=== PATIENT | female | born 1980 | race Hispanic/Latino ===

== ENCOUNTER 2019-03-07 05:31 | Observation (INO) | payer BC ==
[2019-03-05 17:05] LABS: BASOPHILS # (AUTO) 0.1 (0.0-0.1); BASOPHILS % 0.7 % (0.0-1.0); EOSINOPHILS # (AUTO) 0.7 (0.0-0.4); EOSINOPHILS % 8.4 % (0.0-6.0); HEMATOCRIT 37.2 % (34.2-44.1); LYMPHOCYTES # (AUTO) 1.6 (1.0-3.2); LYMPHOCYTES % 20.2 % (18.0-39.1); MEAN CORPUSCULAR HEMOGLOBIN 27.6 pg (28-32); MEAN CORPUSCULAR HGB CONC 32.3 g/dL (31-35); MEAN CORPUSCULAR VOLUME 85.5 fL (81-99); MONOCYTES # (AUTO) 0.5 (0.2-0.8); MONOCYTES % 6.2 % (4.4-11.3); NEUTROPHILS # (AUTO) 5.2 (2.1-6.9); NEUTROPHILS % 64.3 % (38.7-80.0); PLATELET COUNT 223 x10e3/uL (140-360); RED BLOOD COUNT 4.35 x10e6/uL (3.6-5.1); RED CELL DISTRIBUTION WIDTH 15.6 % (11.7-14.4)
[2019-03-05 17:07] LABS: BILIRUBIN,URINE NEGATIVE (NEGATIVE); COLOR,URINE YELLOW (YELLOW); NITRITE,URINE NEGATIVE (NEGATIVE); PROTEIN,URINE DIPSTICK NEGATIVE (NEGATIVE); URINE UROBILINOGEN 0.2 mg/dL (0.2 - 1)
[2019-03-05 17:15] LABS: CLARITY,URINE CLOUDY (CLEAR); KETONES,URINE NEGATIVE (NEGATIVE); LEUKOCYTE ESTERASE ,URINE NEGATIVE (NEGATIVE)
[2019-03-05 17:20] LABS: ALBUMIN 3.8 g/dL (3.5-5.0); BILIRUBIN,DIRECT 0.1 mg/dL (0.0-0.5)
[2019-03-05 17:33] LABS: HIV 1&2 AB SCREEN NON-REACTIVE (NONREACTIVE)
--- NOTE | 2019-03-05 17:42 | Diagnostic Imaging Report ---
EXAM: CHEST 2 VIEWS DATE: 03/05/2019 4:12 PM INDICATION: ^PRE-OP ORDERS COMPARISON: None FINDINGS: Lines and tubes: None Heart size normal. No focal pulmonary opacity, pleural effusion or pneumothorax. Upper abdomen unremarkable. No acute bony abnormality. IMPRESSION: No evidence for acute disease. Signed by: Dr. Dwight Phipps M.D. on 03/05/2019 5:38 PM
[~2019-03-07] VITALS: Ht 160 cm; Wt 109.8 kg
[~2019-03-07 05:31] MED LIST: HEMOCYTE-F TAB1 EACH PO
--- OUTSIDE RECORDS SUMMARY | 2019-03-07 05:38 | XMS REPORT | Summary of Care ---
Author Author [facility] Organization [facility] Address Unknown Phone Unavailable Encounter MIREYA Eng(ALEXIA) [id number] Date(s): 03/08/18 - 03/08/18 [facility] [address] [facility] [address] [place], [place] [id number]- Discharge Disposition: Home or Self Care Attending Physician: Jane Prescott MD Vital Signs Most recent to 1 oldest [Reference Range]: Height 154.94 cm (03/08/18 4:02 PM) Temperature Oral 97.6 DegF [96.4-99.1 DegF] (03/08/18 4:02 PM) Blood Pressure 118/81 mmHg [90-140/60-90 mmHg] (03/08/18 4:02 PM) Respiratory Rate 16 BRMIN [14-20 BRMIN] (03/08/18 4:02 PM) Peripheral Pulse 100 bpm Rate [60-100 bpm] (03/08/18 4:02 PM) Weight 105.455 kg (03/08/18 4:02 PM) Body Mass Index 43.93 m2 (03/08/18 4:02 PM) Problem List Condition Effective Dates Status Health Status Informant Daytime Active somnolence(Confirmed ) Generalized Active abdominal pain(Confirmed) Iron deficiency Active anemia(Confirmed) Abdominal pain, Resolved chronic, left upper quadrant(Confirmed) Leukocytosis(Confirm Active ed) Cervicalgia of Active bottctkm-lpragly-lfz al region(Confirmed) Obesity(Confirmed) Active Encounter for Active preventive health examination(Confirme d) Abdominal pain, Resolved chronic, right upper quadrant(Confirmed) Allergies, Adverse Reactions, Alerts Substance Reaction Severity Status Seasonale Active Medications Medrol Dosepak 4 mg oral tablet See Instructions, PO, Take by mouth as directed on label., # 1 Pack, 0 Refill(s) Start Date: 03/08/18 Stop Date: 03/14/18 Status: Ordered Pulmicort Flexhaler 90 mcg/inh inhalation powder 1 puff, INHALATION, BID, # 1 ea, 0 Refill(s) Start Date: 03/08/18 Stop Date: 04/07/18 Status: Ordered Results No data available for this section Immunizations No data available for this section Procedures Procedure Date Related Diagnosis Body Site Status Gallbladder operation 2009 Completed section 01/22/09 Completed Social History Social History Type Response Employment/School Status: Employed. Alcohol Current, Type Beer, Wine, Liquor. Frequency: 1-2 times per week. Smoking Status Never smoker; Exposure to Tobacco Smoke None; Cigarette Smoking Last 365 Days No; Reg Smoking Cessation Counseling No1 entered on: 03/08/18 1Cessation N/A Assessment and Plan No data available for this section
--- OUTSIDE RECORDS SUMMARY | 2019-03-07 05:38 | XMS REPORT | Summary of Care ---
Author Author [facility] Organization [facility] Address Unknown Phone Unavailable Encounter MIREYA Eng(ALEXIA) [id number] Date(s): 11/01/16 - 11/01/16 [facility] [address] [place] [address]- [facility] [phone] Discharge Disposition: Home or Self Care Attending Physician: Houston Root MD Referring Physician: Houston Root MD Vital Signs Most recent to 1 oldest [Reference Range]: Height 160.02 cm (11/01/16 1:13 PM) Blood Pressure 124/87 mmHg [90-140/60-90 mmHg] (11/01/16 1:13 PM) Respiratory Rate 16 BRMIN [14-20 BRMIN] (11/01/16 1:13 PM) Peripheral Pulse 74 bpm Rate [60-100 bpm] (11/01/16 1:13 PM) Weight 103.182 kg (11/01/16 1:13 PM) Body Mass Index 40.3 m2 (11/01/16 1:13 PM) Problem List Condition Effective Dates Status Health Status Informant Obesity(Confirmed) Active Encounter for Active preventive health examination(Confirme d) Allergies, Adverse Reactions, Alerts Substance Reaction Severity Status Seasonale Active Medications ranitidine 0 Refill(s) Start Date: 11/01/16 Status: Ordered Results No data available for this section Immunizations No data available for this section Procedures Procedure Date Related Diagnosis Body Site section Gallbladder operation Social History Social History Type Response Alcohol Current, Type Beer, Wine, Liquor. Frequency: 1-2 times per week. Smoking Status Never smoker; Exposure to Tobacco Smoke None; Cigarette Smoking Last 365 Days No; Reg Smoking Cessation Counseling No Assessment and Plan No data available for this section
--- OUTSIDE RECORDS SUMMARY | 2019-03-07 05:38 | XMS REPORT | Summary of Care ---
Author Author [facility] Organization [facility] Address Unknown Phone Unavailable Encounter HQ Albertina(ALEXIA) [id number] Date(s): 12/16/16 - 01/14/17 [facility] [address] [facility] [address] [place] [address] [place] [phone] Discharge Disposition: Home or Self Care Attending Physician: Haley Powers MD Referring Physician: Haley Powers MD Vital Signs 1 2 3 Most recent to oldest [Reference Range]: 154.94 cm (01/07/17 11:34 AM) 155.5 cm (12/22/16 1:05 PM) 157.4 cm (12/16/16 10:42 AM) Height 97.8 DegF (01/07/17 11:34 AM) 97.6 DegF (12/22/16 1:05 PM) 97.9 DegF (12/16/16 10:42 AM) Temperature Oral [96.4-99.1 DegF] 118/84 mmHg (01/07/17 11:34 AM) 119/83 mmHg (12/22/16 1:05 PM) 114/78 mmHg (12/16/16 10:42 AM) Blood Pressure [90-140/60-90 mmHg] 18 BRMIN (01/07/17 11:34 AM) 18 BRMIN (12/22/16 1:05 PM) 18 BRMIN (12/16/16 10:42 AM) Respiratory Rate [14-20 BRMIN] 67 bpm (01/07/17 11:34 AM) 81 bpm (12/22/16 1:05 PM) 91 bpm (12/16/16 10:42 AM) Peripheral Pulse Rate [60-100 bpm] 99.545 kg (01/07/17 11:34 AM) 100.182 kg (12/22/16 1:05 PM) 100.5 kg (12/16/16 10:42 AM) Weight 41.47 m2 (01/07/17 11:34 AM) 41.43 m2 (12/22/16 1:05 PM) 40.57 m2 (12/16/16 10:42 AM) Body Mass Index Problem List Condition Effective Dates Status Health Status Informant Generalized Active abdominal pain(Confirmed) Abdominal pain, Active chronic, left upper quadrant(Confirmed) Leukocytosis(Confirm Active ed) Obesity(Confirmed) Active Encounter for Active preventive health examination(Confirme d) Abdominal pain, Active chronic, right upper quadrant(Confirmed) Allergies, Adverse Reactions, Alerts Substance Reaction Severity Status Seasonale Active Medications ferrous sulfate 325 mg oral enteric coated tablet 325 mg=1 tab, PO, BID, # 60 tab, 3 Refill(s), Pharmacy: [id number] Start Date: 12/30/16 Stop Date: 04/29/17 Status: Ordered Flonase 0.05 mg/inh nasal spray 1 spray, NASAL, BID, # 16 gm, 0 Refill(s), Pharmacy: [id number] Start Date: 12/30/16 Status: Ordered Results No data available for this section Immunizations No data available for this section Procedures Procedure Date Related Diagnosis Body Site Gallbladder operation 2009 section 01/22/09 Social History Social History Type Response Employment/School Status: Employed. Alcohol Current, Type Beer, Wine, Liquor. Frequency: 1-2 times per week. Smoking Status Never smoker; Exposure to Tobacco Smoke None; Cigarette Smoking Last 365 Days No; Reg Smoking Cessation Counseling No1 1Cessation N/A Assessment and Plan Extracted from: Title: Consult Note Author: Rich Blank MD Date: 12/22/16 Assessment/Plan Right lower quadrant abdominal swelling, mass and lump Imaging reviewed and although there is an ill-defined area in the RLQ, no discernable mass is seen. She has several imaging studies that are pending (PET) and a colonoscopy. Will re-eval after these are complete as of now there is no diagnosis. She is in agreement This will be conferred to Dr. Powers
--- OUTSIDE RECORDS SUMMARY | 2019-03-07 05:38 | XMS REPORT | Summary of Care ---
Author Author [facility] Internal Medicine [facility] Organization [facility] Internal Medicine [facility] Address Unknown Phone Unavailable Encounter MIREYA Eng(ALEXIA) [id number] Date(s): 11/10/17 - 11/10/17 [facility] Internal Medicine [facility] [address] [facility] [address] [place], [place] [phone]- Discharge Disposition: Home or Self Care Attending Physician: Ryan Roque MD Vital Signs Most recent to 1 oldest [Reference Range]: Height 154.94 cm (11/10/17 3:06 PM) Temperature Oral 98.2 DegF [96.4-99.1 DegF] (11/10/17 3:06 PM) Blood Pressure 115/82 mmHg [90-140/60-90 mmHg] (11/10/17 3:06 PM) Respiratory Rate 16 BRMIN [14-20 BRMIN] (11/10/17 3:06 PM) Peripheral Pulse 72 bpm Rate [60-100 bpm] (11/10/17 3:06 PM) Weight 105 kg (11/10/17 3:06 PM) Body Mass Index 43.74 m2 (11/10/17 3:06 PM) Problem List Condition Effective Dates Status Health Status Informant Daytime Active somnolence(Confirmed ) Generalized Active abdominal pain(Confirmed) Iron deficiency Active anemia(Confirmed) Abdominal pain, Resolved chronic, left upper quadrant(Confirmed) Leukocytosis(Confirm Active ed) Cervicalgia of Active dwbkulut-fsgyxux-hgg al region(Confirmed) Obesity(Confirmed) Active Encounter for Active preventive health examination(Confirme d) Abdominal pain, Resolved chronic, right upper quadrant(Confirmed) Allergies, Adverse Reactions, Alerts Substance Reaction Severity Status Seasonale Active Medications ferrous sulfate 160 mg oral tablet, extended release 160 mg=1 tab, PO, Daily, # 90 tab, 1 Refill(s), Pharmacy: [id number] Start Date: 11/10/17 Status: Ordered Results No data available for [...] Reg Smoking Cessation Counseling No1 entered on: 11/10/17 1Cessation N/A Assessment and Plan No data available for this section
--- OUTSIDE RECORDS SUMMARY | 2019-03-07 05:38 | XMS REPORT | Summary of Care ---
Author Author [facility] Organization [facility] Address Unknown Phone Unavailable Encounter MIREYA Eng(ALEXIA) [id number] Date(s): 11/07/16 - 11/08/16 [facility] [address] [place] [address] Discharge Diagnosis: Epigastric pain Discharge Diagnosis: UTI (urinary tract infection) Discharge Disposition: Home or Self Care Attending Physician: Sharon Ballard MD Vital Signs 1 2 3 Most recent to oldest [Reference Range]: 160.02 cm (11/07/16 11:46 PM) Height 97.9 DegF (11/08/16 5:15 AM) 98 DegF (11/08/16 2:13 AM) 98.3 DegF (11/07/16 11:46 PM) Temperature Oral [96.4-99.1 DegF] 103/63 mmHg (11/08/16 5:15 AM) 119/71 mmHg (11/08/16 4:15 AM) 119/71 mmHg (11/08/16 3:15 AM) Blood Pressure [90-140/60-90 mmHg] 18 BRMIN (11/08/16 5:15 AM) 18 BRMIN (11/08/16 4:15 AM) 19 BRMIN (11/08/16 3:15 AM) Respiratory Rate [14-20 BRMIN] 79 bpm (11/08/16 5:15 AM) 70 bpm (11/08/16 4:15 AM) 68 bpm (11/08/16 3:15 AM) Peripheral Pulse Rate [60-100 bpm] 103.182 kg (11/07/16 11:46 PM) Weight 40.3 m2 (11/07/16 11:46 PM) Body Mass Index Problem List Condition Effective Dates Status Health Status Informant Obesity(Confirmed) Active Encounter for Active preventive health examination(Confirme d) Allergies, Adverse Reactions, Alerts Substance Reaction Severity Status Seasonale Active Medications GI cocktail 30 mL, Route: PO, Dosing Weight 103.182, kg, ONCE, STAT, Start date: 11/08/16 3: 10:00 CDT, Stop date: 11/08/16 3:10:00 CDT Start Date: 11/08/16 Stop Date: 11/08/16 Status: Completed Macrobid 100 mg oral capsule 100 mg=1 cap, PO, BID, X 3 day, # 6 cap, 0 Refill(s) Start Date: 11/08/16 Stop Date: 11/11/16 Status: Ordered morphine Sulfate 4 mg, Route: IVP, ONCE, Dosing Weight 103.182, kg, Priority: STAT, Start date: 0 11/08/16 3:10:00 CDT, Stop date: 11/08/16 3:10:00 CDT Start Date: 11/08/16 Stop Date: 11/08/16 Status: Completed ondansetron 4 mg, Route: IVP, ONCE, Dosing Weight 103.182, kg, Priority: STAT, Start date: 0 11/08/16 3:10:00 CDT, Stop date: 11/08/16 3:10:00 CDT Start Date: 11/08/16 Stop Date: 11/08/16 Status: Completed pantoprazole 40 mg, Route: IVP, ONCE, Dosing Weight 103.182, kg, For IV push reconstitute wit h 10 ml 0.9% sodium chloride and push over at least 3 minutes, Priority: STAT, S tart date: 11/08/16 3:10:00 CDT, Stop date: 11/08/16 3:10:00 CDT Start Date: 11/08/16 Stop Date: 11/08/16 Status: Completed Saline Flush 0.9% 10 mL, Route: IVP, Drug Form: INJ, Dosing Weight 103.182, kg, PRN, PRN Line Flus h, Start date: 11/08/16 3:10:00 CDT, Duration: 30 day, Stop date: 12/08/16 3:09: 00 CDT Notes: (Same as: BD Posiflush) Start Date: 11/08/16 Stop Date: 11/08/16 Status: Discontinued Sodium Chloride 0.9% (Bolus) IV 1,000 mL, 2,000 ml/hr, Infuse Over: 30 minutes, Route: IV, ONCE, Priority: STAT, Dosing Weight 103.182 kg, Start date: 11/08/16 3:10:00 CDT, Duration: 1 doses or times, Stop date: 11/08/16 3:10:00 CDT Start Date: 11/08/16 Stop Date: 11/08/16 Status: Completed tramadol 50 mg oral tablet 50 mg, Route: PO, Drug form: TAB, ONCE, Dosing Weight 103.182, kg, Priority: STA T, Start date: 11/08/16 5:38:00 CDT, Stop date: 11/08/16 5:38:00 CDT Start Date: 11/08/16 Stop Date: 11/08/16 Status: Completed Results ELECTROLYTES Most recent to 1 oldest [Reference Range]: Sodium Lvl [135-145 137 mEq/L mEq/L] (11/08/16 3:22 AM) Potassium Lvl 3.9 mEq/L [3.5-5.1 mEq/L] (11/08/16 3:22 AM) Chloride Lvl [95-109 102 mEq/L mEq/L] (11/08/16 3:22 AM) CO2 [24-32 mEq/L] 26 mEq/L (11/08/16 3:22 AM) AGAP [10.0-20.0 12.9 mEq/L mEq/L] (11/08/16 3:22 AM) CHEM PANEL Most recent to 1 oldest [Reference Range]: Creatinine Lvl 0.82 mg/dL [0.50-1.40 mg/dL] (11/08/16 3:22 AM) eGFR 94 mL/min/1.73m2 1 *NA* (11/08/16 3:22 AM) BUN [7-22 mg/dL] 10 mg/dL (11/08/16 3:22 AM) Glucose Lvl [70-99 152 mg/dL mg/dL] *HI* (11/08/16 3:22 AM) Total Protein 7.3 g/dL [6.4-8.4 g/dL] (11/08/16 3:22 AM) Albumin Lvl [3.5-5.0 3.5 g/dL g/dL] (11/08/16 3:22 AM) Globulin [2.7-4.2 3.8 g/dL g/dL] (11/08/16 3:22 AM) A/G Ratio [0.7-1.6] 0.9 (11/08/16 3:22 AM) Calcium Lvl 8.8 mg/dL [8.5-10.5 mg/dL] (11/08/16 3:22 AM) ALT [0-65 unit/L] 40 unit/L (11/08/16 3:22 AM) AST [0-37 unit/L] 17 unit/L (11/08/16 3:22 AM) Alk Phos [39-136 107 unit/L unit/L] (11/08/16 3:22 AM) Bili Total [0.2-1.3 0.3 mg/dL mg/dL] (11/08/16 3:22 AM) Bili Direct [0.0-0.3 0.1 mg/dL mg/dL] (11/08/16 3:22 AM) Bili Indirect 0.2 mg/dL [0.0-1.0 mg/dL] (11/08/16 3:22 AM) Lipase Lvl [73-393 89 unit/L unit/L] (11/08/16 3:22 AM) 1Result Comment: The eGFR is calculated using the CKD-EPI formula. In most young, healthy individuals the eGFR will be >90 mL/min/1.73m2. The eGFR declines with age. An eGFR of 60-89 may be normal in some populations, particularly the elderly, for whom the CKD-EPI formula has not been extensively validated. Use of the eGFR is not recommended in the following populations: Individuals with unstable creatinine concentrations, including patients and those with serious co-morbid conditions. Patients with extremes in muscle mass or diet. The data above are obtained from the National Kidney Disease Education Program ( NKDEP) which additionally recommends that when the eGFR is used in patients with extremes of body mass index for purposes of drug dosing, the eGFR should be mul tiplied by the estimated BMI. URINE AND STOOL Most recent to 1 oldest [Reference Range]: UA Turbidity [Clear] Slight *ABN* (11/08/16 4:31 AM) UA Color Ltyellow *NA* (11/08/16 4:31 AM) UA pH [5.0-8.0] 5.0 (11/08/16 4:31 AM) UA Spec Grav 1.012 [<=1.030] (11/08/16 4:31 AM) UA Glucose [Negative Negative mg/dL mg/dL] *NA* (11/08/16 4:31 AM) UA Blood [Negative] Negative (11/08/16 4:31 AM) UA Ketones [Negative Negative mg/dL mg/dL] *NA* (11/08/16 4:31 AM) UA Protein [Negative Negative mg/dL mg/dL] (11/08/16 4:31 AM) UA Urobilinogen <=1.0 mg/dL [0.1-1.0 mg/dL] *NA* (11/08/16 4:31 AM) UA Bili [Negative] Negative *NA* (11/08/16 4:31 AM) UA Leuk Est Large [Negative] *ABN* (11/08/16 4:31 AM) UA Nitrite Negative [Negative] (11/08/16 4:31 AM) UA WBC [0-5 /HPF] 22 /HPF *HI* (11/08/16 4:31 AM) UA RBC [0-2 /HPF] 5 /HPF *HI* (11/08/16 4:31 AM) UA Bacteria [None Moderate /HPF Seen /HPF] *ABN* (11/08/16 4:31 AM) UA Sq Epi [Few /LPF] Many /LPF *ABN* (11/08/16 4:31 AM) UA Mucus [None Seen Few /LPF /LPF] *NA* (11/08/16 4:31 AM) HEMATOLOGY Most recent to 1 oldest [Reference Range]: WBC [3.7-10.4 K/CMM] 17.8 K/CMM *HI* (11/08/16 3:22 AM) RBC [4.20-5.40 4.47 M/CMM M/CMM] (11/08/16 3:22 AM) Hgb [12.0-16.0 g/dL] 11.3 g/dL *LOW* (11/08/16 3:22 AM) Hct [36.0-48.0 %] 34.7 % *LOW* (11/08/16 3:22 AM) MCV [80.0-98.0 fL] 77.7 fL *LOW* (11/08/16 3:22 AM) MCH [27.0-31.0 pg] 25.2 pg *LOW* (11/08/16 3:22 AM) MCHC [32.0-36.0 32.5 g/dL g/dL] (11/08/16 3:22 AM) RDW [11.5-14.5 %] 14.8 % *HI* (11/08/16 3:22 AM) Platelet [133-450 254 K/CMM K/CMM] (11/08/16 3:22 AM) MPV [7.4-10.4 fL] 8.5 fL (11/08/16 3:22 AM) Segs [45.0-75.0 %] 90.8 % *HI* (11/08/16 3:22 AM) Lymphocytes 5.3 % [20.0-40.0 %] *LOW* (11/08/16 3:22 AM) Monocytes [2.0-12.0 3.7 % %] (11/08/16 3:22 AM) Eosinophils [0.0-4.0 0.1 % %] (11/08/16 3:22 AM) Basophils [0.0-1.0 0.1 % %] (11/08/16 3:22 AM) Segs-Bands # 16.2 K/CMM [1.5-8.1 K/CMM] *HI* (11/08/16 3:22 AM) Lymphocytes # 0.9 K/CMM [1.0-5.5 K/CMM] *LOW* (11/08/16 3:22 AM) Monocytes # [0.0-0.8 0.7 K/CMM K/CMM] (11/08/16 3:22 AM) Microcyte [None 1+ Seen] *ABN* (11/08/16 3:22 AM) Immunizations No data available for this section [...]
--- OUTSIDE RECORDS SUMMARY | 2019-03-07 05:38 | XMS REPORT | Summary of Care ---
Author Author [facility] Internal Medicine [facility] Organization [facility] Internal Medicine [facility] Address Unknown Phone Unavailable Encounter MIREYA Eng(ALEXIA) [id number] Date(s): 02/02/18 - 02/02/18 [facility] Internal Medicine [facility] [address] [facility] [address] [place], [place] [phone]- [phone] Discharge Disposition: Home or Self Care Attending Physician: Ryan Roque MD Vital Signs Most recent to 1 oldest [Reference Range]: Height 154.94 cm (02/02/18 11:40 AM) Temperature Oral 98.2 DegF [96.4-99.1 DegF] (02/02/18 11:40 AM) Blood Pressure 117/81 mmHg [90-140/60-90 mmHg] (02/02/18 11:40 AM) Respiratory Rate 16 BRMIN [14-20 BRMIN] (02/02/18 11:40 AM) Peripheral Pulse 91 bpm Rate [60-100 bpm] (02/02/18 11:40 AM) Weight 105.455 kg (02/02/18 11:40 AM) Body Mass Index 43.93 m2 (02/02/18 11:40 AM) Problem List Condition Effective Dates Status Health Status Informant Daytime Active somnolence(Confirmed ) Generalized Active abdominal pain(Confirmed) Iron deficiency Active anemia(Confirmed) Abdominal pain, Resolved chronic, left upper quadrant(Confirmed) Leukocytosis(Confirm Active ed) Cervicalgia of Active zcwqiqdi-brzqiyn-hjj al region(Confirmed) Obesity(Confirmed) Active Encounter for Active preventive health examination(Confirme d) Abdominal pain, Resolved chronic, right upper quadrant(Confirmed) Allergies, Adverse Reactions, Alerts Substance Reaction Severity Status Seasonale Active Medications azithromycin 250 mg oral tablet See Instructions, Take 2 tablets by mouth the first day then 1 tablet by mouth d aily on days 2-5., X 5 day, # 6 tab, 0 Refill(s) Start Date: 02/02/18 Stop Date: 02/07/18 Status: Ordered predniSONE 20 mg oral tablet 40 mg=2 tab, PO, Daily, X 5 day, # 10 tab, 0 Refill(s) Start Date: 02/02/18 Stop Date: 02/07/18 Status: Ordered Results No data available for [...] Reg Smoking Cessation Counseling No1 entered on: 02/02/18 1Cessation N/A Assessment and Plan No data available for this section
--- OUTSIDE RECORDS SUMMARY | 2019-03-07 05:38 | XMS REPORT | Summary of Care ---
Author Author [facility] Organization [facility] [place] Address Unknown Phone Unavailable Encounter HQ Albertina(FIN) [id number] Date(s): 12/28/16 - 12/28/16 [facility] [address] [place] [phone] Discharge Disposition: Home or Self Care Attending Physician: Haley Powers MD Vital Signs No data available for this section Problem List Condition Effective Dates Status Health Status Informant Generalized Active abdominal pain(Confirmed) Abdominal pain, Active chronic, left upper quadrant(Confirmed) Leukocytosis(Confirm Active ed) Obesity(Confirmed) Active Encounter for Active preventive health examination(Confirme d) Abdominal pain, Active chronic, right upper quadrant(Confirmed) Allergies, Adverse Reactions, Alerts Substance Reaction Severity Status Seasonale Active Medications No data available for this section Results No data available for this section [...] Counseling No1 1Cessation N/A Assessment and Plan No data available for this section
--- OUTSIDE RECORDS SUMMARY | 2019-03-07 05:38 | XMS REPORT | CCD ---
Author Author Auto Generated Organization [facility] Address Unknown Phone Unavailable Care Team Providers Care Teacher Vocal Name Role Phone Rocky Keane CP Allergies, Adverse Reactions, Alerts Substance Reaction Status morphine Active Medications Medication Instructions Start Date End Date Status Cipro 500 mg oral 500 mg, 1 tab, PO, Q12H, 6 tab, 12/09/2011 12/12/2011 Ordered tablet Substitution Allowed, TAB Phenergan 25 mg oral 25 mg, 1 tab, PO, Q6H, PRN, 15 tab, 12/09/2011 Ordered tablet Nausea, Substitution Allowed GI cocktail 30 ml, Route: PO, Drug Form: SUSP, 12/09/2011 12/09/2011 Completed ONCE, Formulation #1: (Maalox 30ml - Viscous Lidocaine 10ml - Elixir 10ml), STAT, Start date: 12/09/11 11:09:00, Stop date: 12/09/11 11:09:00 pantoprazole 40 mg, Route: IVP, ONCE, For IV 12/09/2011 12/09/2011 Completed push reconstitute with 10 ml 0.9% sodium chloride and push over at least 3 minutes, Priority: STAT, Start date: 12/09/11 11:09:00, Stop date: 12/09/11 11:09:00 ondansetron 4 mg, Route: IVP, ONCE, Priority: 12/09/2011 12/09/2011 Completed STAT, Start date: 12/09/11 11:09:00, Stop date: 12/09/11 11:09:00 Saline Flush 0.9% 5 ml, Route: IVP, Drug Form: INJ, 12/09/2011 12/09/2011 Discontinued PRN, PRN Line Flush, Start date: 12/09/11 11:09:00, Duration: 24 hr, Stop date: 12/10/11 11:08:00 Vital Signs Most recent to oldest [Reference Range]: 1 Height 160.02 cm (12/09/2011 08:26:00) Weight 90.000 kg (12/09/2011 08:26:00) Results URINALYSIS Most recent to oldest [Reference Range]: 1 UA Turbidity [Clear] Marked *ABN* (12/09/2011 09:15:00) UA Color Ltyellow *NA* (12/09/2011 09:15:00) UA pH [5.0-8.0] 6.0 (12/09/2011 09:15:00) UA Spec Grav [<=1.030] 1.015 (12/09/2011 09:15:00) UA Glucose [Negative mg/dL] Negative mg/dL *NA* (12/09/2011 09:15:00) UA Blood [Negative] Negative (12/09/2011 09:15:00) UA Ketones [Negative mg/dL] Negative mg/dL *NA* (12/09/2011 09:15:00) UA Protein [Negative mg/dL] Negative mg/dL (12/09/2011 09:15:00) UA Urobilinogen [0.1-1.0 mg/dL] <=1.0 mg/dL *NA* (12/09/2011 09:15:00) UA Bili [Negative] Negative *NA* (12/09/2011 09:15:00) UA Leuk Est [Negative] Moderate *ABN* (12/09/2011 09:15:00) UA Nitrite [Negative] Negative (12/09/2011 09:15:00) UA WBC [0-5 /HPF] 8 /HPF *HI* (12/09/2011 09:15:00) UA RBC [0-2 /HPF] <1 /HPF (12/09/2011 09:15:00) UA Bacteria [None Seen /HPF] Few /HPF *NA* (12/09/2011 09:15:00) UA Sq Epi [Few /LPF] Moderate /LPF *ABN* (12/09/2011 09:15:00) CHEMISTRY Most recent to oldest [Reference Range]: 1 Sodium Lvl [135-145 mEq/L] 140 mEq/L (12/09/2011 08:40:00) Potassium Lvl [3.5-5.1 mEq/L] 4.0 mEq/L (12/09/2011 08:40:00) Chloride Lvl [95-109 mEq/L] 106 mEq/L (12/09/2011 08:40:00) CO2 [24-32 mEq/L] 26 mEq/L (12/09/2011 08:40:00) AGAP [10.0-20.0 mEq/L] 12.0 mEq/L (12/09/2011 08:40:00) Creatinine Lvl [0.5-1.4 mg/dL] 0.9 mg/dL (12/09/2011 08:40:00) BUN [7-22 mg/dL] 10 mg/dL (12/09/2011 08:40:00) B/C Ratio [6-25] 11 (12/09/2011 08:40:00) Glucose Lvl [70-99 mg/dL] 101 mg/dL 1 *HI* (12/09/2011 08:40:00) Total Protein [6.4-8.4 g/dL] 7.7 g/dL (12/09/2011 08:40:00) Albumin Lvl [3.5-5.0 g/dL] 3.9 g/dL (12/09/2011 08:40:00) Globulin [2.0-4.0 g/dL] 3.8 g/dL (12/09/2011 08:40:00) A/G Ratio [0.7-1.6] 1.0 (12/09/2011 08:40:00) Calcium Lvl [8.5-10.5 mg/dL] 8.8 mg/dL (12/09/2011 08:40:00) ALT [0-65 U/L] 27 U/L (12/09/2011 08:40:00) AST [0-37 U/L] 8 U/L (12/09/2011 08:40:00) Alk Phos [39-136 U/L] 107 U/L (12/09/2011 08:40:00) Bili Total [0.2-1.3 mg/dL] 0.3 mg/dL (12/09/2011 08:40:00) Amylase Lvl [25-115 U/L] 45 U/L (12/09/2011 08:40:00) Lipase Lvl [73-393 U/L] 110 U/L (12/09/2011 08:40:00) U Preg [Negative] Negative (12/09/2011 09:15:00) 1Interpretive Data: Adult reference range values reflect the clinical guidelinesof the [place] [employer]. HEMATOLOGY Most recent to oldest [Reference Range]: 1 WBC [3.7-10.4 K/CMM] 10.8 K/CMM *HI* (12/09/2011 08:40:00) RBC [4.20-5.40 M/CMM] 4.70 M/CMM (12/09/2011 08:40:00) Hgb [12.0-16.0 g/dL] 12.4 g/dL (12/09/2011 08:40:00) Hct [36.0-48.0 %] 38.3 % (12/09/2011 08:40:00) MCV [81.0-99.0 fL] 81.6 fL (12/09/2011 08:40:00) MCH [27.0-31.0 pg] 26.4 pg *LOW* (12/09/2011 08:40:00) MCHC [32.0-36.0 g/dL] 32.3 g/dL (12/09/2011 08:40:00) RDW [11.5-14.5 %] 14.2 % (12/09/2011 08:40:00) Platelet [133-450 K/CMM] 201 K/CMM (12/09/2011 08:40:00) MPV [7.4-10.4 fL] 10.0 fL (12/09/2011 08:40:00) Segs [45.0-75.0 %] 84.5 % *HI* (12/09/2011 08:40:00) Lymphocytes [20.0-40.0 %] 11.1 % *LOW* (12/09/2011 08:40:00) Monocytes [2.0-12.0 %] 3.0 % (12/09/2011 08:40:00) Eosinophils [0.0-4.0 %] 1.2 % (12/09/2011 08:40:00) Basophils [0.0-1.0 %] 0.2 % (12/09/2011 08:40:00) Segs-Bands # [1.5-8.1 K/CMM] 9.1 K/CMM *HI* (12/09/2011 08:40:00) Lymphocytes # [1.0-5.5 K/CMM] 1.2 K/CMM (12/09/2011 08:40:00) Monocytes # [0.0-0.8 K/CMM] 0.3 K/CMM (12/09/2011 08:40:00) Eosinophils # [0.0-0.5 K/CMM] 0.1 K/CMM (12/09/2011 08:40:00) Basophils # [0.0-0.2 K/CMM] 0.0 K/CMM (12/09/2011 08:40:00) RBC Morph Normal (12/09/2011 08:40:00) Plt Morph Normal (12/09/2011 08:40:00) Microbiology Reports PROCEDURE:Culture: Urine STATUS: In Progress BODY SITE: COLLECTED DATE/TIME: 12/09/2011 10:09:00 SOURCE: Urine, Clean Catch FREE TEXT SOURCE: PRELIMINARY REPORTS Preliminary Report Holding For Better Growth
--- OUTSIDE RECORDS SUMMARY | 2019-03-07 05:38 | XMS REPORT | Continuity of Care Document ---
Author Author [employer] Organization [employer] Address Unknown Phone Unavailable Care Team Providers Care Financial Dealers Name Role Phone [facility] [email or web address] Unavailable Unavailable Problems Problem Status Onset Date Classification Date Reported Comments Source SNORING, DAYTIME SLEEPINESS Active 11/22/2017 [facility]- R19.7; R14.0; R11.0; Z90.49; Z87.1 Active 12/31/2016 [facility] R19.03 - RIGHT LOWER QUADRANT ABDOMINAL Active 12/21/2016 OPI[facility]jelica Far[facility] ABDOMINAL MASS Active 12/16/2016 [facility] Discharge Diagnosis: Epigastric pain 11/08/2016 11/11/2016 [facility] Discharge Diagnosis: UTI 11/08/2016 11/11/2016 [facility] ABD PAIN Active 11/07/2016 [facility] BDDC/ R10.13 EPIGASTRIC PAIN. Active 11/04/2016 [facility] Daytime somnolence Active Problem 09/25/2018 [facility] Generalized abdominal pain Active Problem 09/25/2018 [facility], NOLAN Farley Iron deficiency anemia Active Problem 09/25/2018 [facility] Abdominal pain, chronic, left upper quadrant Resolved Problem 09/25/2018 [facility] NOLAN Farley Leukocytosis [facility] Cervicalgia of zabwyrxy-lcgylzz-oneid region Active Problem 09/25/2018 [facility] Obesity Active Problem [facility], chronic, right upper quadrant Resolved Problem 09/25/2018 [facility], NOLAN Farley Medications Medication Details Route Status Patient Instructions Ordering Provider Order Date Source 60 ACTUAT Budesonide 0.08 MG/ACTUAT Dry Powder Inhaler [Pulmicort] 1 puff, INHALATION, BID, # 1 ea, 0 Refill(s) Active 03/08/2018 [facility] {21 (Methylprednisolone 4 MG Oral Tablet [Medrol]) } Pack [Medrol Dosepak] See Instructions, PO, Take by mouth as directed on label., # 1 Pack, 0 Refill(s) Active 03/08/2018 [facility] azithromycin 250 mg oral tablet See Instructions, Take 2 tablets by mouth the first day then 1 tablet by mouth daily on days 2-5., X 5 day, # 6 tab, 0 Refill(s) Active 02/02/2018 [facility] predniSONE 20 mg oral tablet 40 mg=2 tab, PO, Daily, X 5 day, # 10 tab, 0 Refill(s) Active 02/02/2018 [facility] ferrous sulfate 160 mg oral tablet, extended release 160 mg=1 tab, PO, Daily, # 90 tab, 1 Refill(s), Pharmacy: [id number] Active 11/10/2017 [facility] Fluticasone propionate 0.05 MG/ACTUAT Metered Dose Nasal [place] [Flonase] 1 spray, NASAL, BID, # 16 gm, 0 Refill(s), Pharmacy: [id number] Active 12/30/2016 [facility] ferrous sulfate 325 mg oral enteric coated tablet 325 mg=1 tab, PO, BID, # 60 tab, 3 Refill(s), Pharmacy: [id number] Active 12/30/2016 [facility] tramadol hydrochloride 50 MG Oral Tablet 50 mg, Route: PO, Drug form: TAB, ONCE, Dosing Weight 103.182, kg, Priority: STAT, Start date: 11/08/16 5:38:00 CDT, Stop date: 11/08/16 5:38:00 CDT Inactive 11/08/2016 [facility] Nitrofurantoin 100 MG Oral Capsule [Macrobid] 100 mg=1 cap, PO, BID, X 3 day, # 6 cap, 0 Refill(s) Active 11/08/2016 [facility] GI cocktail 30 mL, Route: PO, Dosing Weight 103.182, kg, ONCE, STAT, Start date: 11/08/16 3:10:00 CDT, Stop date: 11/08/16 3:10:00 CDT Inactive 11/08/2016 [facility] pantoprazole 40 mg, Route: IVP, ONCE, Dosing Weight 103.182, kg, For IV push reconstitute with 10 ml 0.9% sodium chloride and push over at least 3 minutes, Priority: STAT, Start date: 11/08/16 3:10:00 CDT, Stop date: 11/08/16 3:10:00 CDT Inactive 11/08/2016 [facility] Ondansetron 4 mg, Route: IVP, ONCE, Dosing Weight 103.182, kg, Priority: STAT, Start date: 11/08/16 3:10:00 CDT, Stop date: 11/08/16 3:10:00 CDT Inactive 11/08/2016 [facility] Morphine 4 mg, Route: IVP, ONCE, Dosing Weight 103.182, kg, Priority: STAT, Start date: 11/08/16 3:10:00 CDT, Stop date: 11/08/16 3:10:00 CDT Inactive 11/08/2016 [facility] Saline Flush 0.9% 10 mL, Route: IVP, Drug Form: INJ, Dosing Weight 103.182, kg, PRN, PRN Line Flush, Start date: 11/08/16 3:10:00 CDT, Duration: 30 day, Stop date: 12/08/16 3:09:00 CDTNotes: (Same as: BD Posiflush) Inactive 11/08/2016 [facility] Sodium Chloride 0.154 MEQ/ML Injectable Solution 1,000 mL, 2,000 ml/hr, Infuse Over: 30 minutes, Route: IV, ONCE, Priority: STAT, Dosing Weight 103.182 kg, Start date: 11/08/16 3:10:00 CDT, Duration: 1 doses or times, Stop date: 11/08/16 3:10:00 CDT Inactive 11/08/2016 [facility] Ranitidine 0 Refill(s) Active 11/01/2016 [facility] Cipro 500 mg oral tablet 500 mg, 1 tab, PO, Q12H, 6 tab, Substitution Allowed, TAB PO Active [facility] 12/09/2011 [facility] Phenergan 25 mg oral tablet 25 mg, 1 tab, PO, Q6H, PRN, 15 tab, Nausea, Substitution Allowed PO Active [facility] 12/09/2011 [facility] GI cocktail 30 ml, Route: PO, Drug Form: SUSP, ONCE, Formulation #1: (Maalox 30ml - Viscous Lidocaine 10ml - Elixir 10ml), STAT, Start date: 12/09/11 11:09:00, Stop date: 12/09/11 11:09:00 PO No Longer Active [facility] 12/09/2011 [facility] pantoprazole 40 mg, Route: IVP, ONCE, For IV push reconstitute with 10 ml 0.9% sodium chloride and push over at least 3 minutes, Priority: STAT, Start date: 12/09/11 11:09:00, Stop date: 12/09/11 11:09:00 IVP No Longer Active [facility] 12/09/2011 [facility] ondansetron 4 mg, Route: IVP, ONCE, Priority: STAT, Start date: 12/09/11 11:09:00, Stop date: 12/09/11 11:09:00 IVP No Longer Active [facility] 12/09/2011 [facility] Saline Flush 0.9% 5 ml, Route: IVP, Drug Form: INJ, PRN, PRN Line Flush, Start date: 12/09/11 11:09:00, Duration: 24 hr, Stop date: 12/10/11 11:08:00 IVP No Longer Active [facility] 12/09/2011 [facility] Allergies, Adverse Reactions, Alerts Substance Category Reaction Severity Reaction type Status Date Reported Comments Source Seasonale Assertion Drug allergy Active [facility] morphine drug allergy Allergy Active [facility] Immunizations No Data Provided for This Section Results Order Name Results Value Reference Range Date Interpretation Comments Source URINE AND STOOL UA Urobilinogen <=1.0 mg/dL 0.1 - 1.0 11/08/2016 [facility] URINE AND STOOL UA Spec Grav 1.012 <=1.030 11/08/2016 [facility] URINE AND STOOL UA pH 5.0 5.0 - 8.0 11/08/2016 [facility] URINE AND STOOL UA Turbidity Slight *ABN* (11/08/16 4:31 AM) Clear 11/08/2016 [facility] URINE AND STOOL UA Ketones Negative mg/dL Negative mg/dL 11/08/2016 [facility] URINE AND STOOL UA Protein Negative mg/dL Negative mg/dL 11/08/2016 [facility] URINE AND STOOL UA Glucose Negative mg/dL Negative mg/dL 11/08/2016 [facility] URINE AND STOOL UA Nitrite Negative (11/08/16 4:31 AM) Negative 11/08/2016 [facility] URINE AND STOOL UA Leuk Est Large *ABN* (11/08/16 4:31 AM) Negative 11/08/2016 [facility] URINE AND STOOL UA Bili Negative *NA* (11/08/16 4:31 AM) Negative 11/08/2016 [facility] URINE AND STOOL UA Blood Negative (11/08/16 4:31 AM) Negative 11/08/2016 [facility] URINE AND STOOL UA Sq Epi Many /LPF Few /LPF 11/08/2016 [facility] URINE AND STOOL UA Color Ltyellow 11/08/2016 [facility] URINE AND STOOL UA WBC 22 0 - 5 11/08/2016 [facility] URINE AND STOOL UA Mucus Few /LPF None Seen /LPF 11/08/2016 [facility] URINE AND STOOL UA RBC 5 0 - 2 11/08/2016 [facility] URINE AND STOOL UA Bacteria Moderate /HPF None Seen /HPF 11/08/2016 [facility] CHEM PANEL Lipase Lvl 89 73 - 393 11/08/2016 [facility] CHEM PANEL Alk Phos 107 39 - 136 11/08/2016 [facility] CHEM PANEL AST 17 0 - 37 11/08/2016 [facility] CHEM PANEL ALT 40 0 - 65 11/08/2016 [facility] CHEM PANEL Globulin 3.8 2.7 - 4.2 11/08/2016 [facility] CHEM PANEL A/G Ratio 0.9 0.7 - 1.6 11/08/2016 [facility] CHEM PANEL Albumin Lvl 3.5 3.5 - 5.0 11/08/2016 [facility] CHEM PANEL Total Protein 7.3 6.4 - 8.4 11/08/2016 [facility] CHEM PANEL Bili Indirect 0.2 0.0 - 1.0 11/08/2016 [facility] CHEM PANEL Bili Total 0.3 0.2 - 1.3 11/08/2016 [facility] CHEM PANEL Bili Direct 0.1 0.0 - 0.3 11/08/2016 [facility] ELECTROLYTES AGAP 12.9 10.0 - 20.0 11/08/2016 [facility] ELECTROLYTES eGFR 94 11/08/2016 Result Comment: The eGFR is calculated using the [...] from the National Kidney Disease Education Program (NKDEP) which additionally recommends that when the eGFR is used in patients with extremes of body mass index for purposes of drug dosing, the eGFR should be multiplied by the estimated BMI. [facility] ELECTROLYTES Potassium Lvl 3.9 3.5 - 5.1 11/08/2016 [facility] ELECTROLYTES Sodium Lvl 137 135 - 145 11/08/2016 [facility] ELECTROLYTES Creatinine Lvl 0.82 0.50 - 1.40 11/08/2016 [facility] ELECTROLYTES BUN 10 7 - 22 11/08/2016 [facility] ELECTROLYTES Glucose Lvl 152 70 - 99 11/08/2016 [facility] ELECTROLYTES Calcium Lvl 8.8 8.5 - 10.5 11/08/2016 [facility] ELECTROLYTES CO2 26 24 - 32 11/08/2016 [facility] ELECTROLYTES Chloride Lvl 102 95 - 109 11/08/2016 [facility] MPV 8.5 7.4 - 10.4 11/08/2016 [facility] Hct 34.7 36.0 - 48.0 11/08/2016 [facility] MCV 77.7 80.0 - 98.0 11/08/2016 [facility] MCHC 32.5 32.0 - 36.0 11/08/2016 [facility] Platelet 254 133 - 450 11/08/2016 [facility] MCH 25.2 27.0 - 31.0 11/08/2016 [facility] RDW 14.8 11.5 - 14.5 11/08/2016 [facility] WBC 17.8 3.7 - 10.4 11/08/2016 [facility] RBC 4.47 4.20 - 5.40 11/08/2016 [facility] Hgb 11.3 12.0 - 16.0 11/08/2016 [facility] Microcyte 1+ *ABN* (11/08/16 3:22 AM) None Seen 11/08/2016 [facility] Lymphocytes # 0.9 1.0 - 5.5 11/08/2016 [facility] HEMATOLOGY Monocytes # 0.7 0.0 - 0.8 11/08/2016 [facility] HEMATOLOGY Eosinophils 0.1 0.0 - 4.0 11/08/2016 [facility] HEMATOLOGY Basophils 0.1 0.0 - 1.0 11/08/2016 [facility] HEMATOLOGY Segs-Bands # 16.2 1.5 - 8.1 11/08/2016 [facility] HEMATOLOGY Segs 90.8 45.0 - 75.0 11/08/2016 [facility] HEMATOLOGY Lymphocytes 5.3 20.0 - 40.0 11/08/2016 [facility] HEMATOLOGY Monocytes 3.7 2.0 - 12.0 11/08/2016 [facility] Microbiology Culture: Urine 12/09/2011 [facility] CHEMISTRY U Preg Negative (12/09/2011 09:15:00) Negative 12/09/2011 Normal [facility] URINALYSIS UA Color Ltyellow 12/09/2011 [facility] URINALYSIS UA Urobilinogen 0.1 - 1.0 12/09/2011 [facility] URINALYSIS UA Bacteria Few /HPF *NA* (12/09/2011 09:15:00) None Seen 12/09/2011 [facility] URINALYSIS UA RBC <1 0 - 2 12/09/2011 Normal [facility] URINALYSIS UA Bili Negative *NA* (12/09/2011 09:15:00) Negative 12/09/2011 [facility] URINALYSIS UA Sq Epi Moderate /LPF *ABN* (12/09/2011 09:15:00) Few 12/09/2011 ABN [facility] URINALYSIS UA WBC 8 0 - 5 12/09/2011 [facility] URINALYSIS UA Nitrite Negative (12/09/2011 09:15:00) Negative 12/09/2011 [facility] URINALYSIS UA Blood Negative (12/09/2011 09:15:00) Negative 12/09/2011 [facility] URINALYSIS UA Leuk Est Moderate *ABN* (12/09/2011 09:15:00) Negative 12/09/2011 [facility] URINALYSIS UA Glucose Negative mg/dL *NA* (12/09/2011 09:15:00) Negative 12/09/2011 [facility] URINALYSIS UA Protein Negative mg/dL (12/09/2011 09:15:00) Negative 12/09/2011 Normal [facility] URINALYSIS UA pH 6.0 5.0 - 8.0 12/09/2011 Normal [facility] URINALYSIS UA Ketones Negative mg/dL *NA* (12/09/2011 09:15:00) Negative 12/09/2011 NA [facility] URINALYSIS UA Spec Grav 1.015 <=1.030 12/09/2011 Normal [facility] URINALYSIS UA Turbidity Marked *ABN* (12/09/2011 09:15:00) Clear 12/09/2011 [facility] CHEMISTRY Lipase Lvl 110 73 - 393 12/09/2011 Normal [facility] CHEMISTRY Amylase Lvl 45 25 - 115 12/09/2011 [facility] CHEMISTRY B/C Ratio 11 6 - 25 12/09/2011 Normal [facility] CHEMISTRY AGAP 12.0 10.0 - 20.0 12/09/2011 Normal [facility] CHEMISTRY Globulin 3.8 2.0 - 4.0 12/09/2011 Normal [facility] CHEMISTRY A/G Ratio 1.0 0.7 - 1.6 12/09/2011 Normal [facility] CHEMISTRY Calcium Lvl 8.8 8.5 - 10.5 12/09/2011 Normal [facility] CHEMISTRY Albumin Lvl 3.9 3.5 - 5.0 12/09/2011 Normal [facility] CHEMISTRY Glucose Lvl 101 70 - 99 12/09/2011 [facility] <sup>1</sup>Interpretive Data: Adult reference range values reflect the clinical guidelines of the [place] [employer]. [facility] CHEMISTRY BUN 10 7 - 22 12/09/2011 Normal [facility] CHEMISTRY Sodium Lvl 140 135 - 145 12/09/2011 Normal [facility] CHEMISTRY Potassium Lvl 4.0 3.5 - 5.1 12/09/2011 Normal [facility] CHEMISTRY Creatinine Lvl 0.9 0.5 - 1.4 12/09/2011 Normal [facility] CHEMISTRY Chloride Lvl 106 95 - 109 12/09/2011 [facility] CHEMISTRY CO2 26 24 - 32 12/09/2011 Normal [facility] CHEMISTRY Bili Total 0.3 0.2 - 1.3 12/09/2011 [facility] CHEMISTRY AST 8 0 - 37 12/09/2011 Normal [facility] CHEMISTRY Alk Phos 107 39 - 136 12/09/2011 [facility] CHEMISTRY ALT 27 0 - 65 12/09/2011 Normal [facility] CHEMISTRY Total Protein 7.7 6.4 - 8.4 12/09/2011 Normal [facility] HEMATOLOGY Eosinophils # 0.1 0.0 - 0.5 12/09/2011 Normal [facility] HEMATOLOGY Monocytes # 0.3 0.0 - 0.8 12/09/2011 Normal [facility] HEMATOLOGY Lymphocytes # 1.2 1.0 - 5.5 12/09/2011 Normal [facility] HEMATOLOGY Basophils # 0.0 0.0 - 0.2 12/09/2011 Normal [facility] HEMATOLOGY Segs-Bands # 9.1 1.5 - 8.1 12/09/2011 [facility] HEMATOLOGY Basophils 0.2 0.0 - 1.0 12/09/2011 [facility] HEMATOLOGY Eosinophils 1.2 0.0 - 4.0 12/09/2011 Normal [facility] HEMATOLOGY Monocytes 3.0 2.0 - 12.0 12/09/2011 [facility] HEMATOLOGY Lymphocytes 11.1 20.0 - 40.0 12/09/2011 LOW [facility] HEMATOLOGY Segs 84.5 45.0 - 75.0 12/09/2011 [facility] HEMATOLOGY Plt Morph Normal (12/09/2011 08:40:00) 12/09/2011 Normal [facility] HEMATOLOGY RBC Morph Normal (12/09/2011 08:40:00) 12/09/2011 Normal [facility] HEMATOLOGY Hct 38.3 36.0 - 48.0 12/09/2011 Normal [facility] HEMATOLOGY MCH 26.4 27.0 - 31.0 12/09/2011 LOW [facility] HEMATOLOGY MCV 81.6 81.0 - 99.0 12/09/2011 Normal [facility] HEMATOLOGY WBC 10.8 3.7 - 10.4 12/09/2011 [facility] HEMATOLOGY RBC 4.70 4.20 - 5.40 12/09/2011 Normal [facility] HEMATOLOGY Hgb 12.4 12.0 - 16.0 12/09/2011 Normal [facility] HEMATOLOGY MPV 10.0 7.4 - 10.4 12/09/2011 Normal [facility] HEMATOLOGY MCHC 32.3 32.0 - 36.0 12/09/2011 Normal [facility] HEMATOLOGY Platelet 201 133 - 450 12/09/2011 Normal [facility] HEMATOLOGY RDW 14.2 11.5 - 14.5 12/09/2011 Normal [facility] Pathology Reports No Data Provided for This Section Diagnostic Reports Report Value Date Source Tumor localization whole body NM EXAM: NM Tumor Localization Whole Body 2 or More Days EXAM: NM Tumor Localization SPECT EXAM: NM Tumor Localization SPECT DATE: 12/28/2016 1:11 PM CDT INDICATION: - 36 yo F with chronic epigastric pain, nausea and diarrhea COMPARISON: PET/CT 12/01/[address] with contrast 11/18/2016 TECHNIQUE: After intravenous administration of 5 mCi of In-111 octreotide, 4 hours (day 1) and 24 hour (day 2) whole-body images as well as SPECT-CT images of the abdomen were obtained. FINDINGS: Tracer distribution throughout the body appears physiologic both on 4 and 24 hours images with no abnormalities to suggest the presence of neuroendocrine tumor with somatostatin 2 or 5 receptors. IMPRESSION: Normal octreotide scan with no evidence of neuroendocrine tumor. 12/29/[address] [facility] [address] Other Tumor EXAM: GA PET CT Skull Base to Mid Thigh DATE: 12/01/2016 8:38 AM CDT INDICATION: R19. Mesenteric Mass - Evaluate for possible carcinoid tumor. COMPARISON: Abdominal pelvis CT dated 11/18/2016 TECHNIQUE: After intravenous administration of 14 mCi of F-18 FDG, one hour delayed PET/non-contrast CT scan from the skull base to the mid thighs level was obtained. FINDINGS: PET: There is no focal FDG uptake in the previously noted 2 cm mesenteric mass on a prior CT. Mild diffuse increased tracer uptake in a large fibroid measuring 8 x 7 cm is noted. The remainder of tracer distribution and metabolism throughout the body is physiologic. CT: The non-contrast CT part of the study demonstrate no lymphadenopathy or pulmonary nodules. The gallbladder is resected. The remaining major visualized organs show no evidence of additional metastatic sites including the bones. IMPRESSION: There is no FDG abnormalities to suggest active malignancy or metastases. If there is still concern for active neuroendocrine tumor in the abdomen, octreotide scan is recommended for further evaluation. 12/01/2016 [facility] Abdomen/Pelvis w IV contrast CT EXAM: CT ABDOMEN AND PELVIS WITH CONTRAST DATE: 11/18/2016 4:07 PM CDT INDICATION: ABD PAIN ADDITIONAL INFORMATION: None. COMPARISON: None. TECHNIQUE: Volumetric CT acquisition of the abdomen and pelvis after the intravenous administration contrast. Axial, coronal and sagittal reconstructions. Postcontrast phases: Venous. IV contrast: 150 mL Omnipaque 350 Oral contrast: Redicat DLP: [id number] FINDINGS: Lines and tubes: None. Lower thorax: Clear. Liver: Mild fatty infiltration is present. No focal lesions. Biliary tree: No intra- or extrahepatic biliary ductal dilation. Gallbladder: Removed. Pancreas: Normal. Spleen: Normal. Adrenals: Normal. Kidneys and ureters: Normal. Bladder: Normal. Reproductive organs: A well circumscribed lobulated lesion is present in the left aspect of the uterus likely a uterine fibroid. No adnexal masses are seen. Gastrointestinal tract: Normal caliber. No wall thickening or inflammatory changes. Appendix: Normal Peritoneum and retroperitoneum: Ill-defined soft tissue density is seen in the right lower quadrant mesentery (series 2 image 50 and coronal series 301B image 46. It has linear spiculations and does tether the adjacent small bowel loops. It measures approximately 2 x 2.5 cm (TRV by CC). No free fluid or focal fluid collection. Lymph nodes: A small mesenteric lymph node is seen adjacent to the above- mentioned soft tissue density. There is an additional ill-defined soft tissue density which may represent a lymph node just slightly more superiorly that is subcentimeter in short axis (2/47). Vasculature: Normal. Bones: Normal. Soft tissues: Normal. IMPRESSION: 1. Ill-defined soft tissue density in the right lower quadrant mesentery is nonspecific but does have some linear spiculations and tethers the adjacent small bowel loops. Although there is no definite focal mass, a carcinoid tumor is a consideration. Other fibrous processes such as desmoid tumor is possible. Please correlate clinically and PET/CT could be considered. 2. Uterine fibroid. Findings were discussed with Dr. Roque by telephone on 11/19/2016 11:45 AM. 11/18/2016 NOLAN Farley Consultation Notes No Data Provided for This Section Discharge Summaries No Data Provided for This Section History and Physicals No Data Provided for This Section Vital Signs Vital Sign Value Date Comments Source BMI Calculated 43.93 03/08/2018 [facility] Height 154.94 cm 03/08/2018 [facility] Weight 105.455 03/08/2018 [facility] Systolic (mm Hg) 118 03/08/2018 [facility] Diastolic (mm Hg) 81 03/08/2018 [facility] Temperature Oral (F) 97.6 F 03/08/2018 [facility] Heart Rate 100 03/08/2018 [facility] Respitory Rate 16 03/08/2018 [facility] BMI Calculated 43.93 02/02/2018 [facility] Weight 105.455 02/02/2018 [facility] Height 154.94 cm 02/02/2018 [facility] Heart Rate 91 02/02/2018 [facility] Respitory Rate 16 02/02/2018 [facility] Temperature Oral (F) 98.2 F 02/02/2018 [facility] Systolic (mm Hg) 117 02/02/2018 [facility] Diastolic (mm Hg) 81 02/02/2018 [facility] Height 154.94 cm 11/10/2017 [facility] BMI Calculated 43.74 11/10/2017 [facility] Weight 105 11/10/2017 [facility] Respitory Rate 16 11/10/2017 [facility] Heart Rate 72 11/10/2017 [facility] Temperature Oral (F) 98.2 F 11/10/2017 [facility] Systolic (mm Hg) 115 11/10/2017 [facility] Diastolic (mm Hg) 82 11/10/2017 [facility] Height 154.94 cm 01/07/2017 [facility] Weight 99.545 01/07/2017 [facility] BMI Calculated 41.47 01/07/2017 [facility] Systolic (mm Hg) 118 01/07/2017 [facility] Diastolic (mm Hg) 84 01/07/2017 [facility] Respitory Rate 18 01/07/2017 [facility] Heart Rate 67 01/07/2017 [facility] Temperature Oral (F) 97.8 F 01/07/2017 [facility] Height 155.5 cm 12/22/2016 [facility] BMI Calculated 41.43 12/22/2016 [facility] Weight 100.182 12/22/2016 [facility] Systolic (mm Hg) 119 12/22/2016 [facility] Diastolic (mm Hg) 83 12/22/2016 [facility] Heart Rate 81 12/22/2016 [facility] Respitory Rate 18 12/22/2016 [facility] Temperature Oral (F) 97.6 F 12/22/2016 [facility] Weight 100.5 12/16/2016 [facility] BMI Calculated 40.57 12/16/2016 [facility] Height 157.4 cm 12/16/2016 [facility] Temperature Oral (F) 97.9 F 12/16/2016 [facility] Heart Rate 91 12/16/2016 [facility] Respitory Rate 18 12/16/2016 [facility] Systolic (mm Hg) 114 12/16/2016 [facility] Diastolic (mm Hg) 78 12/16/2016 [facility] Heart Rate 79 11/08/2016 [facility] Systolic (mm Hg) 103 11/08/2016 [facility] Diastolic (mm Hg) 63 11/08/2016 [facility] Respitory Rate 18 11/08/2016 [facility] Temperature Oral (F) 97.9 F 11/08/2016 [facility] Respitory Rate 18 11/08/2016 [facility] Heart Rate 70 11/08/2016 [facility] Systolic (mm Hg) 119 11/08/2016 [facility] Diastolic (mm Hg) 71 11/08/2016 [facility] Systolic (mm Hg) 119 11/08/2016 [facility] Diastolic (mm Hg) 71 11/08/2016 [facility] Respitory Rate 19 11/08/2016 [facility] Heart Rate 68 11/08/2016 [facility] Temperature Oral (F) 98 F 11/08/2016 [facility] BMI Calculated 40.3 11/08/2016 [facility] Height 160.02 cm 11/08/2016 [facility] Weight 103.182 11/08/2016 [facility] Temperature Oral (F) 98.3 F 11/08/2016 [facility] Height 160.02 cm 11/01/2016 [facility] Weight 103.182 11/01/2016 [facility] BMI Calculated 40.3 11/01/2016 [facility] Respitory Rate 16 11/01/2016 [facility] Heart Rate 74 11/01/2016 [facility] Systolic (mm Hg) 124 11/01/2016 [facility] Diastolic (mm Hg) 87 11/01/2016 [facility] Height 160.02 cm 12/09/2011 [facility] Weight 90.000 12/09/2011 [facility] Encounters Location Location Details Encounter Type Encounter Number Reason For Visit Attending Provider ADM Date DC Date Status Source [facility] Emergency [id number] MATTEO ALLISON 12/09/2011 12/09/2011 Discharged [facility] Outpatient [id number] RYAN ROQUE 09/14/2016 Active [facility] Outpatient [id number] Houston Root 11/01/2016 11/02/2016 [facility] Emergency [id number] Sharon Ballard 11/08/2016 11/08/2016 [facility] Bedded Outpatient [id number] Atgenie Ertan 11/08/2016 11/08/2016 [facility] Outpatient [id number] RYAN ROQUE 11/11/2016 Active [facility] Di[facility] Services [id number] Ryan Roque 11/18/2016 11/19/2016 [facility] Outpatient [id number] RYAN ROQUE 11/22/2016 Active [facility] Outpatient [id number] RYAN ROQUE 11/22/2016 Active [facility] Outpatient [id number] RYAN ROQUE 11/23/2016 Active [facility] [place] [facility] [place] [id number] Haley Powers 12/16/2016 01/15/2017 [facility] [id number] Haley Powers 12/28/2016 12/29/2016 [facility] Bedded Outpatient [id number] Atgenie Root 01/03/2017 01/03/2017 [facility] Outpatient [id number] SUMEET BARTON 05/05/2017 Active [facility] Outpatient [id number] RYAN ROQUE 11/10/2017 [facility] [place] [facility] [place] [id number] Ryan Roque 11/10/2017 11/11/2017 [facility] [place] [facility] [place] Message [id number] 11/11/2017 11/13/2017 [facility] Outpatient [id number] MARYLOU WEEMS 02/02/2018 Active [facility] [place] [id number] Ryan Roque 02/02/2018 02/03/2018 [facility] Outpatient [id number] GARETH KENYON 03/08/2018 Active [facility] [place] [id number] Gareth Kenyon 03/08/2018 03/09/2018 [facility] Procedures Procedure Code Date Perfomer Comments Source Gallbladder operation [id number] 07/25/2009 [facility] Gallbladder operation [id number] 07/25/2009 [facility] [place] Gallbladder operation [id number] 07/25/2009 [facility] section [id number] 01/22/2009 [facility] section [id number] 01/22/2009 [facility] section [id number] 01/22/2009 [facility] section [id number] [facility] Gallbladder operation [facility] section [id number] [place] Gallbladder operation [place] section [id number] [facility] Gallbladder operation [id number] [facility] [place] Assessment and Plan Assessment and Plan Date Source Extracted from:Title: Consult Note Author: Rich Blank MD Date: [...] This will be conferred to Dr. Powers 01/15/2017 [facility] Plan of Care No Data Provided for This Section Social History Social History Date Source Social History TypeResponse Employment/School Status: Employed. Alcohol Current, Type Beer, Wine, Liquor. Frequency: 1-2 times per week. Smoking Status Never smoker; Exposure to Tobacco Smoke None; Cigarette Smoking Last 365 Days No; Reg Smoking Cessation Counseling No1 1Cessation N/A 12/22/2016 [facility] Social History TypeResponse Employment/School Status: Employed. Alcohol Current, Type Beer, Wine, Liquor. Frequency: 1-2 times per week. Smoking Status Never smoker; Exposure to Tobacco Smoke None; Cigarette Smoking Last 365 Days No; Reg Smoking Cessation Counseling No1 1Cessation N/A 12/22/2016 [facility] Social History TypeResponse Employment/School Status: Employed. Alcohol Current, Type Beer, Wine, Liquor. Frequency: 1-2 times per week. Smoking Status Never smoker; Exposure to Tobacco Smoke None; Cigarette Smoking Last 365 Days No; Reg Smoking Cessation Counseling No1 entered on: 03/08/18 1Cessation N/A 12/22/2016 [facility] Social History TypeResponse Alcohol Current, Type Beer, Wine, Liquor. Frequency: 1-2 times per week. Smoking Status Never smoker; Exposure to Tobacco Smoke None; Cigarette Smoking Last 365 Days No; Reg Smoking Cessation Counseling No 09/14/2016 [facility] Family History No Data Provided for This Section Advance Directives No Data Provided for This Section Functional Status No Data Provided for This Section
--- OUTSIDE RECORDS SUMMARY | 2019-03-07 05:38 | XMS REPORT | Summary of Care ---
Author Author [facility] Organization [facility] Address Unknown Phone Unavailable Encounter HQ Jamarcus_nelly(FIN) [id number] Date(s): 11/08/16 - 11/08/16 [facility] [address] [place] [id number] [phone] Discharge Disposition: Home or Self Care Attending Physician: Houston Root MD Referring Physician: Houston Root MD Vital Signs No data available for [...]
--- OUTSIDE RECORDS SUMMARY | 2019-03-07 05:38 | XMS REPORT | Summary of Care ---
Author Author [facility] Organization [facility] Address Unknown Phone Unavailable Encounter HQ Jamarcus_nelly(FIN) [id number] Date(s): 01/03/17 - 01/03/17 [facility] [address], [place] [address] [phone] Discharge Disposition: Home or Self Care Attending [...] Date Related Diagnosis Body Site Gallbladder operation 2010 section 01/22/09 Social History Social History Type Response Employment/School Status: Employed. Alcohol Current, Type Beer, Wine, Liquor. Frequency: 1-2 times per week. Smoking Status Never smoker; Exposure to Tobacco Smoke None; Cigarette Smoking Last 365 Days No; Reg Smoking Cessation Counseling No1 1Cessation N/A Assessment and Plan No data available for this section
--- OUTSIDE RECORDS SUMMARY | 2019-03-07 05:38 | XMS REPORT ---
Author [facility] Address Unknown Phone Unavailable Care Team Providers Care Forester [employer] Name Role Phone Tegan VERDUZCO Unavailable Unavailable Problems This patient has no known problems. Allergies, Adverse Reactions, Alerts This patient has no known allergies or adverse reactions. Medications This patient has no known medications. Results Test Description Test Time Test Comments Text Results Atomic Results Result Comments CHEST 2 VIEWS 2019-03-05 17:38:00 [place] [address] Patient Name: LES RODRIGEZ MR #: [id number] : 1980 Age/Sex: 38/F Req #: [id number] Adm Physician: Ordered by: WINSTON VERDUZCO MD Report #: [id number] Location: OR Room/Bed: Procedure: [id number] DX/CHEST 2 VIEWS Exam Date: Exam Time: REPORT STATUS: Signed EXAM: CHEST 2 VIEWS DATE: 03/05/2019 4:12 PM INDICATION: PRE-OP ORDERS COMPARISON: None FINDINGS: Lines and tubes: None Heart size normal. No focal pulmonary opacity, pleural effusion or pneumothorax. Upper abdomen unremarkable. No acute bony abnormality. IMPRESSION: No evidence for acute disease. Signed by: Dr. Estephanie Vora M.D. on 03/05/2019 5:38 PM Dictated By: ESTEPHANIE VORA MD 173 Transcribed By: KENIA on 03/05/191737 COPY TO: WINSTON VERDUZCO MD
--- OUTSIDE RECORDS SUMMARY | 2019-03-07 05:38 | XMS REPORT | Summary of Care ---
Author Author [facility] Organization [facility] Address Unknown Phone Unavailable Encounter HQ Albertina(FIN) [id number] Date(s): 11/11/17 - 11/12/17 [facility] [address] [facility], [facility] [address] [place] [phone]- [phone] Vital Signs No data available for this section Problem List Condition Effective Dates Status Health Status Informant Daytime Active somnolence(Confirmed ) Generalized Active abdominal pain(Confirmed) Iron deficiency Active anemia(Confirmed) Abdominal pain, Resolved chronic, left upper quadrant(Confirmed) Leukocytosis(Confirm Active ed) Cervicalgia of Active [id number]-[id number] al region(Confirmed) Obesity(Confirmed) Active Encounter for Active [...]
--- OUTSIDE RECORDS SUMMARY | 2019-03-07 05:38 | XMS REPORT | Summary of Care ---
Author Author [facility] Organization [facility] [place] Address Unknown Phone Unavailable Encounter HQ Kathrynr_nelly(FIN) [id number] Date(s): 11/18/16 - 11/18/16 [facility] [place] [address] [place] [phone] Discharge Disposition: Home or Self Care Attending Physician: Ryan Roque MD Vital Signs No data available for this section Problem List Condition Effective Dates Status Health Status Informant Generalized Active abdominal pain(Confirmed) Leukocytosis(Confirm Active ed) Obesity(Confirmed) Active Encounter for [...]
[2019-03-07] MEDS ORDERED: CEFOXITIN IV ONE (06:40)
[2019-03-07] MEDS ORDERED: D5W IV ONE (06:40)
[2019-03-07] MEDS ORDERED: IBUPROFEN 800MG/ 250ML 250 ML IV ONE (08:18)
[2019-03-07] MEDS ORDERED: BUPIVACAINE LIPOSOME/PF 266 MG/20 ML IJ ONE (08:24)
[2019-03-07] MEDS ORDERED: BUPIVACAINE 0.25%/EPI 30ML SDV INJ ONE (09:03)
[2019-03-07] MEDS ORDERED: KETOROLAC TROMETHAMINE 30 MG/ML VIAL IV PRN (09:45)
[2019-03-07] MEDS ORDERED: ONDANSETRON HCL INJ 2MG/ML 2ML 2 MG/ML VIAL IV PRN (09:45)
[2019-03-07] MEDS ORDERED: DIPHENHYDRAMINE HCL 25 MG CAP PO PRN (09:45)
[2019-03-07] MEDS ORDERED: NALOXONE HCL INJ 0.4 MG/ML AMP IV PRN (09:45)
[2019-03-07] MEDS: HYDROMORPHONE 0.2MG/ML-SOD CHL 30ML PCA SYRINGE IV PRN ×2 (09:48→21:07)
--- OUTSIDE RECORDS SUMMARY | 2019-03-07 10:08 | XMS REPORT | Continuity of Care Document ---
Author Author Rolith Organization Rolith Address Unknown Phone Unavailable Care Team Providers Care Power House Engineer Name Role Phone [facility] Unavailable Unavailable Problems Problem Status Onset Date Classification Date Reported Comments Source SNORING, DAYTIME SLEEPINESS Active 11/22/2017 [facility]- R19.7; R14.0; R11.0; Z90.49; Z87.1 Active 12/31/2016 [facility] R19.03 - RIGHT LOWER QUADRANT ABDOMINAL Active 12/21/2016 [facility] ABDOMINAL MASS Active 12/16/2016 [facility] Discharge Diagnosis: Epigastric pain 11/08/2016 11/11/2016 [facility] Discharge Diagnosis: UTI 11/08/2016 11/11/2016 [facility] ABD PAIN Active 11/07/2016 [facility] BDDC/ R10.13 EPIGASTRIC PAIN. Active 11/04/2016 [facility] Daytime somnolence Active Problem 09/25/2018 [facility] Generalized abdominal pain Active Problem 09/25/2018 [facility], NOLAN Farley Iron deficiency anemia Active Problem 09/25/2018 [facility] Abdominal pain, chronic, left upper quadrant Resolved Problem 09/25/2018 [facility] NOLAN Farley Leukocytosis [facility] Cervicalgia of ndqrrxqf-lqbaptq-slmgw region Active Problem 09/25/2018 [facility] Obesity [facility], chronic, right upper quadrant Resolved Problem 09/25/2018 [facility], NOLAN Farley Medications Medication Details Route [...] # 10 tab, 0 Refill(s) Active 02/02/2018 [facility] ferrous sulfate 160 mg oral tablet, extended release 160 mg=1 tab, PO, Daily, # 90 tab, 1 Refill(s), Pharmacy: [id number] Active 11/10/2017 [facility] Fluticasone propionate 0.05 MG/ACTUAT Metered Dose Nasal [place] [Flonase] 1 spray, NASAL, BID, # 16 gm, 0 Refill(s), Pharmacy: [id number] Active 12/30/2016 [facility] ferrous sulfate 325 mg oral enteric coated tablet 325 mg=1 tab, PO, BID, # 60 tab, 3 Refill(s), Pharmacy: [id number] Active 12/30/2016 [facility] tramadol hydrochloride 50 MG Oral Tablet 50 mg, Route: PO, Drug form: TAB, ONCE, Dosing Weight 103.182, kg, Priority: STAT, Start date: 11/08/16 5:38:00 CDT, Stop date: 11/08/16 5:38:00 CDT Inactive 11/08/2016 [facility] Nitrofurantoin 100 MG Oral Capsule [Macrobid] 100 mg=1 cap, PO, BID, X 3 day, # 6 cap, 0 Refill(s) Active 11/08/2016 [facility] GI cocktail 30 mL, Route: PO, Dosing Weight 103.182, kg, ONCE, STAT, Start date: 11/08/16 3:10:00 CDT, Stop date: 11/08/16 3:10:00 CDT Inactive 11/08/2016 [facility] pantoprazole 40 mg, Route: IVP, ONCE, Dosing Weight 103.182, kg, For IV push reconstitute with 10 ml 0.9% sodium chloride and push over at least 3 minutes, Priority: STAT, Start date: 11/08/16 3:10:00 CDT, Stop date: 11/08/16 3:10:00 CDT Inactive 11/08/2016 [facility] Ondansetron 4 mg, Route: IVP, ONCE, Dosing Weight 103.182, kg, Priority: STAT, Start date: 11/08/16 3:10:00 CDT, Stop date: 11/08/16 3:10:00 CDT Inactive 11/08/2016 [facility] Morphine 4 mg, Route: IVP, ONCE, Dosing Weight 103.182, kg, Priority: STAT, Start date: 11/08/16 3:10:00 CDT, Stop date: 11/08/16 3:10:00 CDT Inactive 11/08/2016 [facility] Saline Flush 0.9% 10 mL, Route: IVP, Drug Form: INJ, Dosing Weight 103.182, kg, PRN, PRN Line Flush, Start date: 11/08/16 3:10:00 CDT, Duration: 30 day, Stop date: 12/08/16 3:09:00 CDTNotes: (Same as: BD Posiflush) Inactive 11/08/2016 [facility] Sodium Chloride 0.154 MEQ/ML Injectable Solution 1,000 mL, 2,000 ml/hr, Infuse Over: 30 minutes, Route: IV, ONCE, Priority: STAT, Dosing Weight 103.182 kg, Start date: 11/08/16 3:10:00 CDT, Duration: 1 doses or times, Stop date: 11/08/16 3:10:00 CDT Inactive 11/08/2016 [facility] Ranitidine 0 Refill(s) Active 11/01/2016 [facility] Cipro 500 mg oral tablet 500 mg, 1 tab, PO, Q12H, 6 tab, Substitution Allowed, TAB PO Active [facility] 12/09/2011 [facility] Phenergan 25 mg oral tablet 25 mg, 1 tab, PO, Q6H, PRN, 15 tab, Nausea, Substitution Allowed PO Active [facility] 12/09/2011 [facility] GI cocktail 30 ml, Route: PO, Drug Form: SUSP, ONCE, Formulation #1: (Maalox 30ml - Viscous Lidocaine 10ml - Elixir 10ml), STAT, Start date: 12/09/11 11:09:00, Stop date: 12/09/11 11:09:00 PO No Longer Active [facility] 12/09/2011 [facility] pantoprazole 40 mg, Route: IVP, ONCE, For IV push reconstitute with 10 ml 0.9% sodium chloride and push over at least 3 minutes, Priority: STAT, Start date: 12/09/11 11:09:00, Stop date: 12/09/11 11:09:00 IVP No Longer Active [facility] 12/09/2011 [facility] ondansetron 4 mg, Route: IVP, ONCE, Priority: STAT, Start date: 12/09/11 11:09:00, Stop date: 12/09/11 11:09:00 IVP No Longer Active [facility] 12/09/2011 [facility] Saline Flush 0.9% 5 ml, Route: IVP, Drug Form: INJ, PRN, PRN Line Flush, Start date: 12/09/11 11:09:00, Duration: 24 hr, Stop date: 12/10/11 11:08:00 IVP No Longer Active [facility] 12/09/2011 [facility] Allergies, Adverse Reactions, Alerts Substance Category Reaction Severity Reaction type Status Date Reported Comments Source Seasonale Assertion Drug allergy Active Medical Group morphine drug allergy Allergy Active [facility] Immunizations No Data Provided for This Section Results Order Name Results Value Reference Range Date Interpretation Comments Source URINE AND STOOL UA Urobilinogen <=1.0 mg/dL 0.1 - 1.0 11/08/2016 [facility] URINE AND STOOL UA Spec Grav 1.012 <=1.030 11/08/2016 [facility] URINE AND STOOL UA pH 5.0 5.0 - 8.0 11/08/2016 [facility] URINE AND STOOL UA Turbidity Slight *ABN* (11/08/16 4:31 AM) Clear 11/08/2016 [facility] URINE AND STOOL UA Ketones Negative mg/dL Negative mg/dL 11/08/2016 [facility] URINE AND STOOL UA Protein Negative mg/dL Negative mg/dL 11/08/2016 [facility] URINE AND STOOL UA Glucose Negative mg/dL Negative mg/dL 11/08/2016 [facility] URINE AND STOOL UA Nitrite Negative (11/08/16 4:31 AM) Negative 11/08/2016 [facility] URINE AND STOOL UA Leuk Est Large *ABN* (11/08/16 4:31 AM) Negative 11/08/2016 [facility] URINE AND STOOL UA Bili Negative *NA* (11/08/16 4:31 AM) Negative 11/08/2016 [facility] URINE AND STOOL UA Blood Negative (11/08/16 4:31 AM) Negative 11/08/2016 [facility] URINE AND STOOL UA Sq Epi Many /LPF Few /LPF 11/08/2016 [facility] URINE AND STOOL UA Color Ltyellow 11/08/2016 [facility] URINE AND STOOL UA WBC 22 0 - 5 11/08/2016 [facility] URINE AND STOOL UA Mucus Few /LPF None Seen /LPF 11/08/2016 [facility] URINE AND STOOL UA RBC 5 0 - 2 11/08/2016 [facility] URINE AND STOOL UA Bacteria Moderate /HPF None Seen /HPF 11/08/2016 [facility] CHEM PANEL Lipase Lvl 89 73 - 393 11/08/2016 [facility] CHEM PANEL Alk Phos 107 39 - 136 11/08/2016 [facility] CHEM PANEL AST 17 0 - 37 11/08/2016 [facility] CHEM PANEL ALT 40 0 - 65 11/08/2016 [facility] CHEM PANEL Globulin 3.8 2.7 - 4.2 11/08/2016 [facility] CHEM PANEL A/G Ratio 0.9 0.7 - 1.6 11/08/2016 [facility] CHEM PANEL Albumin Lvl 3.5 3.5 - 5.0 11/08/2016 [facility] CHEM PANEL Total Protein 7.3 6.4 - 8.4 11/08/2016 [facility] CHEM PANEL Bili Indirect 0.2 0.0 - 1.0 11/08/2016 [facility] CHEM PANEL Bili Total 0.3 0.2 - 1.3 11/08/2016 [facility] CHEM PANEL Bili Direct 0.1 0.0 - 0.3 11/08/2016 [facility] ELECTROLYTES AGAP 12.9 10.0 - 20.0 11/08/2016 [facility] ELECTROLYTES eGFR 94 11/08/2016 Result Comment: [...] should be multiplied by the estimated BMI. [facility] ELECTROLYTES Potassium Lvl 3.9 3.5 - 5.1 11/08/2016 [facility] ELECTROLYTES Sodium Lvl 137 135 - 145 11/08/2016 [facility] ELECTROLYTES Creatinine Lvl 0.82 0.50 - 1.40 11/08/2016 [facility] ELECTROLYTES BUN 10 7 - 22 11/08/2016 [facility] ELECTROLYTES Glucose Lvl 152 70 - 99 11/08/2016 [facility] ELECTROLYTES Calcium Lvl 8.8 8.5 - 10.5 11/08/2016 [facility] ELECTROLYTES CO2 26 24 - 32 11/08/2016 [facility] ELECTROLYTES Chloride Lvl 102 95 - 109 11/08/2016 [facility] MPV 8.5 7.4 - 10.4 11/08/2016 [facility] Hct 34.7 36.0 - 48.0 11/08/2016 [facility] MCV 77.7 80.0 - 98.0 11/08/2016 [facility] MCHC 32.5 32.0 - 36.0 11/08/2016 [facility] Platelet 254 133 - 450 11/08/2016 [facility] MCH 25.2 27.0 - 31.0 11/08/2016 [facility] RDW 14.8 11.5 - 14.5 11/08/2016 [facility] WBC 17.8 3.7 - 10.4 11/08/2016 [facility] RBC 4.47 4.20 - 5.40 11/08/2016 [facility] Hgb 11.3 12.0 - 16.0 11/08/2016 [facility] Microcyte 1+ *ABN* (11/08/16 3:22 AM) None Seen 11/08/2016 [facility] Lymphocytes # 0.9 1.0 - 5.5 11/08/2016 [facility] HEMATOLOGY Monocytes # 0.7 0.0 - 0.8 11/08/2016 [facility] HEMATOLOGY Eosinophils 0.1 0.0 - 4.0 11/08/2016 [facility] HEMATOLOGY Basophils 0.1 0.0 - 1.0 11/08/2016 [facility] HEMATOLOGY Segs-Bands # 16.2 1.5 - 8.1 11/08/2016 [facility] HEMATOLOGY Segs 90.8 45.0 - 75.0 11/08/2016 [facility] HEMATOLOGY Lymphocytes 5.3 20.0 - 40.0 11/08/2016 [facility] HEMATOLOGY Monocytes 3.7 2.0 - 12.0 11/08/2016 [facility] Microbiology Culture: Urine 12/09/2011 [facility] CHEMISTRY U Preg Negative (12/09/2011 09:15:00) Negative 12/09/2011 Normal [facility] URINALYSIS UA Color Ltyellow 12/09/2011 [facility] URINALYSIS UA Urobilinogen 0.1 - 1.0 12/09/2011 [facility] URINALYSIS UA Bacteria Few /HPF *NA* (12/09/2011 09:15:00) None Seen 12/09/2011 [facility] URINALYSIS UA RBC <1 0 - 2 12/09/2011 Normal [facility] URINALYSIS UA Bili Negative *NA* (12/09/2011 09:15:00) Negative 12/09/2011 [facility] URINALYSIS UA Sq Epi Moderate /LPF *ABN* (12/09/2011 09:15:00) Few 12/09/2011 ABN [facility] URINALYSIS UA WBC 8 0 - 5 12/09/2011 [facility] URINALYSIS UA Nitrite Negative (12/09/2011 09:15:00) Negative 12/09/2011 [facility] URINALYSIS UA Blood Negative (12/09/2011 09:15:00) Negative 12/09/2011 [facility] URINALYSIS UA Leuk Est Moderate *ABN* (12/09/2011 09:15:00) Negative 12/09/2011 [facility] URINALYSIS UA Glucose Negative mg/dL *NA* (12/09/2011 09:15:00) Negative 12/09/2011 [facility] URINALYSIS UA Protein Negative mg/dL (12/09/2011 09:15:00) Negative 12/09/2011 Normal [facility] URINALYSIS UA pH 6.0 5.0 - 8.0 12/09/2011 Normal [facility] URINALYSIS UA Ketones Negative mg/dL *NA* (12/09/2011 09:15:00) Negative 12/09/2011 NA [facility] URINALYSIS UA Spec Grav 1.015 <=1.030 12/09/2011 Normal [facility] URINALYSIS UA Turbidity Marked *ABN* (12/09/2011 09:15:00) Clear 12/09/2011 [facility] CHEMISTRY Lipase Lvl 110 73 - 393 12/09/2011 Normal [facility] CHEMISTRY Amylase Lvl 45 25 - 115 12/09/2011 [facility] CHEMISTRY B/C Ratio 11 6 - 25 12/09/2011 Normal [facility] CHEMISTRY AGAP 12.0 10.0 - 20.0 12/09/2011 Normal [facility] CHEMISTRY Globulin 3.8 2.0 - 4.0 12/09/2011 Normal [facility] CHEMISTRY A/G Ratio 1.0 0.7 - 1.6 12/09/2011 Normal [facility] CHEMISTRY Calcium Lvl 8.8 8.5 - 10.5 12/09/2011 Normal [facility] CHEMISTRY Albumin Lvl 3.9 3.5 - 5.0 12/09/2011 Normal [facility] CHEMISTRY Glucose Lvl 101 70 - 99 12/09/2011 [facility] <sup>1</sup>Interpretive Data: Adult reference range values reflect the clinical guidelines of the [place] [employer]. [facility] CHEMISTRY BUN 10 7 - 22 12/09/2011 Normal [facility] CHEMISTRY Sodium Lvl 140 135 - 145 12/09/2011 Normal [facility] CHEMISTRY Potassium Lvl 4.0 3.5 - 5.1 12/09/2011 Normal [facility] CHEMISTRY Creatinine Lvl 0.9 0.5 - 1.4 12/09/2011 Normal [facility] CHEMISTRY Chloride Lvl 106 95 - 109 12/09/2011 [facility] CHEMISTRY CO2 26 24 - 32 12/09/2011 Normal [facility] CHEMISTRY Bili Total 0.3 0.2 - 1.3 12/09/2011 [facility] CHEMISTRY AST 8 0 - 37 12/09/2011 Normal [facility] CHEMISTRY Alk Phos 107 39 - 136 12/09/2011 [facility] CHEMISTRY ALT 27 0 - 65 12/09/2011 Normal [facility] CHEMISTRY Total Protein 7.7 6.4 - 8.4 12/09/2011 Normal [facility] HEMATOLOGY Eosinophils # 0.1 0.0 - 0.5 12/09/2011 Normal [facility] HEMATOLOGY Monocytes # 0.3 0.0 - 0.8 12/09/2011 Normal [facility] HEMATOLOGY Lymphocytes # 1.2 1.0 - 5.5 12/09/2011 Normal [facility] HEMATOLOGY Basophils # 0.0 0.0 - 0.2 12/09/2011 Normal [facility] HEMATOLOGY Segs-Bands # 9.1 1.5 - 8.1 12/09/2011 [facility] HEMATOLOGY Basophils 0.2 0.0 - 1.0 12/09/2011 [facility] HEMATOLOGY Eosinophils 1.2 0.0 - 4.0 12/09/2011 Normal [facility] HEMATOLOGY Monocytes 3.0 2.0 - 12.0 12/09/2011 [facility] HEMATOLOGY Lymphocytes 11.1 20.0 - 40.0 12/09/2011 LOW [facility] HEMATOLOGY Segs 84.5 45.0 - 75.0 12/09/2011 [facility] HEMATOLOGY Plt Morph Normal (12/09/2011 08:40:00) 12/09/2011 Normal [facility] HEMATOLOGY RBC Morph Normal (12/09/2011 08:40:00) 12/09/2011 Normal [facility] HEMATOLOGY Hct 38.3 36.0 - 48.0 12/09/2011 Normal [facility] HEMATOLOGY MCH 26.4 27.0 - 31.0 12/09/2011 LOW [facility] HEMATOLOGY MCV 81.6 81.0 - 99.0 12/09/2011 Normal [facility] HEMATOLOGY WBC 10.8 3.7 - 10.4 12/09/2011 [facility] HEMATOLOGY RBC 4.70 4.20 - 5.40 12/09/2011 Normal [facility] HEMATOLOGY Hgb 12.4 12.0 - 16.0 12/09/2011 Normal [facility] HEMATOLOGY MPV 10.0 7.4 - 10.4 12/09/2011 Normal [facility] HEMATOLOGY MCHC 32.3 32.0 - 36.0 12/09/2011 Normal [facility] HEMATOLOGY Platelet 201 133 - 450 12/09/2011 Normal [facility] HEMATOLOGY RDW 14.2 11.5 - 14.5 12/09/2011 Normal [facility] Pathology Reports No Data Provided for [...] with no evidence of neuroendocrine tumor. 12/29/[address] [facility] [address] Other Tumor EXAM: [place] PET CT Skull Base to Mid Thigh [...] scan is recommended for further evaluation. 12/01/2016 [facility] Abdomen/Pelvis w IV contrast CT EXAM: CT [...] Comments Source BMI Calculated 43.93 03/08/2018 [facility] Height 154.94 cm 03/08/2018 [facility] Weight 105.455 03/08/2018 [facility] Systolic (mm Hg) 118 03/08/2018 [facility] Diastolic (mm Hg) 81 03/08/2018 [facility] Temperature Oral (F) 97.6 F 03/08/2018 [facility] Heart Rate 100 03/08/2018 [facility] Respitory Rate 16 03/08/2018 [facility] BMI Calculated 43.93 02/02/2018 [facility] [...] 11/10/2017 [facility] Height 154.94 cm 01/07/2017 [facility] Weight 99.545 01/07/2017 [facility] BMI Calculated 41.47 01/07/2017 [facility] Systolic (mm Hg) 118 01/07/2017 [facility] Diastolic (mm Hg) 84 01/07/2017 [facility] Respitory Rate 18 01/07/2017 [facility] Heart Rate 67 01/07/2017 [facility] Temperature Oral (F) 97.8 F 01/07/2017 [facility] Height 155.5 cm 12/22/2016 [facility] BMI Calculated 41.43 12/22/2016 [facility] Weight 100.182 12/22/2016 [facility] Systolic (mm Hg) 119 12/22/2016 [facility] Diastolic (mm Hg) 83 12/22/2016 [facility] Heart Rate 81 12/22/2016 [facility] Respitory Rate 18 12/22/2016 [facility] Temperature Oral (F) 97.6 F 12/22/2016 [facility] Weight 100.5 12/16/2016 [facility] BMI Calculated 40.57 12/16/2016 [facility] Height 157.4 cm 12/16/2016 [facility] Temperature Oral (F) 97.9 F 12/16/2016 [facility] Heart Rate 91 12/16/2016 [facility] Respitory Rate 18 12/16/2016 [facility] Systolic (mm Hg) 114 12/16/2016 [facility] Diastolic (mm Hg) 78 12/16/2016 [facility] Heart Rate 79 11/08/2016 [facility] Systolic (mm Hg) 103 11/08/2016 [facility] Diastolic (mm Hg) 63 11/08/2016 [facility] Respitory Rate 18 11/08/2016 [facility] Temperature Oral (F) 97.9 F 11/08/2016 [facility] Respitory Rate 18 11/08/2016 [facility] Heart Rate 70 11/08/2016 [facility] Systolic (mm Hg) 119 11/08/2016 [facility] Diastolic (mm Hg) 71 11/08/2016 [facility] Systolic (mm Hg) 119 11/08/2016 [facility] Diastolic (mm Hg) 71 11/08/2016 [facility] Respitory Rate 19 11/08/2016 [facility] Heart Rate 68 11/08/2016 [facility] Temperature Oral (F) 98 F 11/08/2016 [facility] BMI Calculated 40.3 11/08/2016 [facility] Height 160.02 cm 11/08/2016 [facility] Weight 103.182 11/08/2016 [facility] Temperature Oral (F) 98.3 F 11/08/2016 [facility] Height 160.02 cm 11/01/2016 [facility] Weight 103.182 11/01/2016 [facility] BMI Calculated 40.3 11/01/2016 [facility] Respitory Rate 16 11/01/2016 [facility] Heart Rate 74 11/01/2016 [facility] Systolic (mm Hg) 124 11/01/2016 [facility] Diastolic (mm Hg) 87 11/01/2016 [facility] Height 160.02 cm 12/09/2011 [facility] Weight 90.000 12/09/2011 [facility] Encounters Location Location Details Encounter Type Encounter Number Reason For Visit Attending Provider ADM Date DC Date Status Source [facility] Emergency [id number] MATTEO ALLISON 12/09/2011 12/09/2011 Discharged [facility] Outpatient [id number] RYAN ROQUE 09/14/2016 Active [facility] Outpatient [id number] [place] Root 11/01/2016 11/02/2016 [facility] Emergency [id number] Sharon Ballard 11/08/2016 11/08/2016 [facility] Bed[facility] Outpatient [id number] Atgenie Ertan 11/08/2016 11/08/2016 [facility] Outpatient [id number] RYAN ROQUE 11/11/2016 Active [facility] Out[facility] [id number] Ryan Roque 11/18/2016 11/19/2016 [facility] Outpatient [id number] RYAN ROQUE 11/22/2016 Active [facility] Outpatient [id number] RYAN ROQUE 11/22/2016 Active [facility] Outpatient [id number] RYAN ROQUE 11/23/2016 Active [facility] Oncology [facility] Recurring [id number] Haley Powers 12/16/2016 01/15/[address] [facility] Outpatient Imaging [facility] [id number] Haley Powers 12/28/2016 12/29/2016 [facility] Bedded Outpatient [id number] Atgenie Root 01/03/2017 01/03/2017 [facility] Outpatient [id number] SUMEET BARTNO 05/05/2017 Active [facility] Outpatient [id number] RYAN ROQUE 11/10/2017 [facility] Internal Medicine [facility] Outpatient [id number] Ryan Roque 11/10/2017 11/11/2017 Medical Group [facility] Internal Medicine [facility] Phone Message [phone] 11/11/2017 11/13/2017 [facility] Outpatient [id number] MARYLOU WEEMS 02/02/2018 Active [facility] Internal Medicine [facility] Outpatient [id number] Ryan Roque 02/02/2018 02/03/2018 [facility] Outpatient [id number] GARETH KENYON 03/08/2018 Active [facility] Internal Medicine [facility] Outpatient [id number] Gareth Kenyon 03/08/2018 03/09/2018 [facility] Procedures Procedure Code Date Perfomer Comments Source Gallbladder operation [id number] 07/25/2009 [facility] Gallbladder operation [id number] 07/25/2009 [facility] [place] Gallbladder operation [id number] 07/25/2009 [facility] section [id number] 01/22/2009 [facility] section [id number] 01/22/2009 NOLAN [place] section [id number] 01/22/2009 [facility] section [id number] [facility] Gallbladder operation [facility] section [id number] [facility] section [id number] [facility] [place] Gallbladder operation [id number] [place] [place] Assessment and Plan Assessment and Plan Date [...] will be conferred to Dr. Powers 01/15/2017 [facility] Plan of Care No Data Provided for This Section Social History Social History Date Source Social History TypeResponse Employment/School Status: Employed. Alcohol Current, Type Beer, Wine, Liquor. Frequency: 1-2 times per week. Smoking Status Never smoker; Exposure to Tobacco Smoke None; Cigarette Smoking Last 365 Days No; Reg Smoking Cessation Counseling No1 1Cessation N/A 12/22/2016 [facility] Social History TypeResponse Employment/School Status: Employed. [...] No1 entered on: 03/08/18 1Cessation N/A 12/22/2016 [facility] Social History TypeResponse Alcohol Current, Type Beer, Wine, Liquor. Frequency: 1-2 times per week. Smoking Status Never smoker; Exposure to Tobacco Smoke None; Cigarette Smoking Last 365 Days No; Reg Smoking Cessation Counseling No 09/14/2016 [facility] Family History No Data Provided for This Section Advance Directives No Data Provided for This Section Functional Status No Data Provided for This Section
--- NOTE | 2019-03-07 11:43 | NUR ---
RECEIVED PATIENT FROM PACU. PATIENT A/O X3, EVEN RESPIRATIONS ON 2LNC. LUNG SOUNDS CLEAR TO AUSCULTATION, BOWEL SOUNDS X4, VERTICAL INCISION ON ABDOMEN WITH COVERLET. RIGHT HAND 20 GAUGE IV WITH BOTTOM MAN DILAUDID. D5LR @ 125 CC/HR. SCD's AND SCOT HOSE BILATERALLY. MILLER IN PLACE WITH CLEAR YELLOW URINE. VITAL SIGNS STABLE, CALL LIGHT IN REACH, ORIENTED PATIENT TO ROOM. WILL CONTINUE TO MONITOR PATIENT.
[2019-03-07] MEDS ORDERED: CEFOXITIN 2GM/ D5W 50ML 50 ML IV SCH ×2 (12:42→14:00)
[2019-03-07 13:04] VITALS: BP 102/67
[2019-03-07 13:09] VITALS: BP 102/67
[2019-03-07] MEDS ORDERED: DEXTROSE 5%/LACTATED RINGERS 1,000 ML IV SCH (14:00)
[2019-03-07] MEDS ORDERED: CEFOXITIN SODIUM 2 G/VIAL IV SCH (14:00)
--- NOTE | 2019-03-07 14:01 | Operative Report ---
DATE OF PROCEDURE: 03/07/2019 SURGEON: Marvin Quintana MD PREOPERATIVE DIAGNOSES: A 38-year-old female, 1, para 1, with enlarged uterus about 16-week size and possible large fibrous uterus. POSTOPERATIVE DIAGNOSES: 1. A 38-year-old female, 1, para 1, with enlarged uterus about 16-week size and possible large fibrous uterus. 2. Uterine hypertrophy, 16-18 week size of uterus. 3. 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 SURGICAL PROCEDURES DONE: 1. Examination under anesthesia. 2. Exploratory laparotomy. STRIPPER AND TAPER: Jerardo Greenwood MD. FINDINGS AT THE TIME OF SURGERY: On EUA, cervix looks normal. Uterus enlarged to 16-18 week size. No adnexal masses felt. On laparotomy, uterus is enlarged about 16-18 week size. Both tubes and ovaries look normal, but the uterus is enlarged uniformly. Everything feel soft, could not feel any clear-cut fibroid tumor. Possible adenomyosis, possible cellular fibroid, which is deep inside the uterus. Could not remove any tumor masses because could not find any within the reach. ESTIMATED BLOOD LOSS: About 100 mL. URINE: Clear. COMPLICATIONS: No complications. DRAINS: The Jimenez in the bladder draining clear urine. DESCRIPTION OF PROCEDURE: The patient was brought to the operating room, put in the supine position and general anesthesia was given without any problems. Then, she was examined under anesthesia. The findings are as dictated above. Cervix looks normal. Uterus enlarged about 16-18 week size. No adnexal masses felt. Then, she was prepped and draped in the routine fashion and proceeded with the surgery. Jimenez catheter within the bladder draining clear urine. Because of the big size of the uterus, I made a vertical incision below the subumbilical midline vertical incision and taken down to the fascia. Fascia opened in a vertical fashion. Then, the muscles and identified the parietal peritoneum, opened and entered the abdominal cavity without any problems. Then, placed the O'Vince-O'Garzon retractor in the incision followed by better exposure and packed the bowels up with wet laps, and put in the upper blade and the lower blade. Then, the uterus definitely enlarged, hypertrophic about 16-18 week size. Both tubes and ovaries looked normal, but the uterus was enlarged uniformly and I tried several times, could not feel any clear-cut tumor. Something little firm feels in the left cornual area in the posterior wall, but it was deep and no clear-cut margins, and possible adenomyosis, possible cellular myoma or possible very deep, but nothing like a mass, like a 10 cm size could be felt, like a hard, like a fibroid tumor to make the incision on the uterus and remove. I did not want to damage the uterus, because she is planning to have the children, did not make any cuts on the uterus and take the pictures, and decided to close. Possibly considered a consult with conciliation court judge. After satisfactory visualization, Dr. Greenwood agrees with the same opinion. We removed all the laps and all the retractors, and closed the abdominal wall in layers. The parietal peritoneum closed with 2-0 Vicryl with continuous stitches, fascia was closed with #1 Vicryl using 2 sutures starting at the corners and ending in the midline. Then, I irrigated and injected Exparel for the local anesthetic for the postop pain relief. Then, subcutaneous tissue was approximated with 2-0 Vicryl with continuous stitches, and skin was approximated with subcuticular stitches using the 4-0 Vicryl. I then injected the 0.25% Marcaine in the skin incision for the postop pain relief about 20 mL. The patient tolerated the procedure well. There were no complications. Estimated blood loss was less than 100 mL. Urine clear in the Jimenez bag. The patient moved to the recovery room in a stable condition. MD LAUREANO Berumen/SURESHL /[id number]
[2019-03-07] MEDS: CEFOXITIN 2GM/ D5W 50ML 50 ML IV SCH ×2 (14:29→20:21)
[2019-03-07] MEDS ORDERED: EPHEDRINE SULFATE INJ 50 MG/10 ML SYR ONE (14:34)
[2019-03-07] MEDS ORDERED: NEOSTIGMINE 5 MG/5ML SYR ONE (14:34)
[2019-03-07] MEDS ORDERED: DEXAMETHASONE SOD PHOS INJ 4 MG/ML VIAL ONE (14:34)
[2019-03-07] MEDS ORDERED: GLYCOPYRROLATE INJ 1MG/ 5 ML SYR ONE (14:34)
[2019-03-07] MEDS ORDERED: VASOPRESSIN INJ 20 UNIT/ML VIAL ONE (14:34)
[2019-03-07] MEDS ORDERED: LIDOCAINE HCL 2% LOCAL INJ 5 ML SDV VIAL INJ ONE (14:34)
[2019-03-07] MEDS ORDERED: ALBUTEROL SULFATE HFA 8GM INHALATION AEROSOL INH ONE (14:34)
[2019-03-07] MEDS ORDERED: PROPOFOL IV EMULSION 10 MG/ML 20 ML VIAL ONE (14:34)
[2019-03-07] MEDS ORDERED: SEVOFLURANE INHAL SOLN 250 ML PEN BTL ONE (14:34)
[2019-03-07] MEDS ORDERED: ROCURONIUM BROMIDE 10 MG/ML 5ML VIAL ONE (14:34)
[2019-03-07] MEDS ORDERED: ONDANSETRON HCL INJ 2MG/ML 2ML 2 MG/ML VIAL ONE (14:34)
[2019-03-07] MEDS ORDERED: FENTANYL CITRATE/PF 100MCG/2 ML INJ ONE (15:26)
[2019-03-07] MEDS ORDERED: MIDAZOLAM HCL 2 MG/2 ML VIAL ONE (15:26)
[2019-03-07] MEDS ORDERED: MORPHINE SULFATE INJ 10 MG/ML ONE (15:26)
[2019-03-07 16:45] VITALS: BP 109/68
[2019-03-07] MEDS: DEXTROSE 5%/LACTATED RINGERS 1,000 ML IV SCH ×2 (17:22→20:45)
[2019-03-07 19:47] VITALS: BP 109/69
[2019-03-07 19:53] VITALS: BP 109/69
[2019-03-08] VITALS: BP 110/60
--- NOTE | 2019-03-08 00:09 | NUR ---
Patient states pain level is improving.
[2019-03-08] MEDS: CEFOXITIN 2GM/ D5W 50ML 50 ML IV SCH ×2 (02:03→09:16)
[2019-03-08 04:00] VITALS: BP 111/69
[2019-03-08] MEDS: DEXTROSE 5%/LACTATED RINGERS 1,000 ML IV SCH ×2 (04:45→12:45)
[2019-03-08 05:10] LABS: BASOPHILS % 0.3 % (0.0-1.0); EOSINOPHILS # (AUTO) 0.1 (0.0-0.4); EOSINOPHILS % 0.8 % (0.0-6.0); HEMATOCRIT 35.2 % (34.2-44.1); HEMOGLOBIN 11.2 g/dL (12.0-16.0); LYMPHOCYTES # (AUTO) 1.5 (1.0-3.2); LYMPHOCYTES % 13.5 % (18.0-39.1); MEAN CORPUSCULAR HEMOGLOBIN 27.5 pg (28-32); MEAN CORPUSCULAR HGB CONC 31.8 g/dL (31-35); MEAN CORPUSCULAR VOLUME 86.3 fL (81-99); MONOCYTES # (AUTO) 0.6 (0.2-0.8); MONOCYTES % 5.9 % (4.4-11.3); NEUTROPHILS # (AUTO) 8.5 (2.1-6.9); NEUTROPHILS % 78.9 % (38.7-80.0); PLATELET COUNT 208 x10e3/uL (140-360); RED BLOOD COUNT 4.08 x10e6/uL (3.6-5.1); RED CELL DISTRIBUTION WIDTH 15.4 % (11.7-14.4)
[2019-03-08 05:35] LABS: BLOOD UREA NITROGEN 5 mg/dL (7-26); BUN/CREATININE RATIO 7 (6-25); CALCIUM 8.2 mg/dL (8.4-10.2); CARBON DIOXIDE 22 mmol/L (22-29); CHLORIDE 104 mmol/L (98-107); CREATININE, SERUM 0.75 mg/dL (0.57-1.11); EST GLOMERULAR FILTRATION RATE > 60 ML/MIN (60-); GLUCOSE 132 mg/dL (74-118); SODIUM 135 mmol/L (136-145)
--- NOTE | 2019-03-08 06:16 | NUR ---
Jimenez D/C as ordered.
--- NOTE | 2019-03-08 07:08 | NUR ---
WALKING ROUNDS DONE, PT ALERT RESP EVEN AND UNLABORED AT THIS TIME NO DISTRESS NOTED , PT ABLE TO MAKE NEEDS KNOWN, CALL LIGHT IN REACH, PT HAS FAMILY AT BEDSIDE.
[2019-03-08] MEDS ORDERED: HYDROCODONE/APAP 5MG-325MG TAB PO PRN (08:00)
[2019-03-08] MEDS ORDERED: IBUPROFEN 400 MG TAB PO PRN (08:00)
[2019-03-08 08:09] VITALS: BP 112/61
[2019-03-08 08:58] VITALS: BP 112/61
--- NOTE | 2019-03-08 09:15 | NUR ---
PRIMARY CARE PEDIATRICIAN PUMP D/MANDY AT THIS TIME. PT GIVEN 30 MG IVP TORADOL, TOLERATED WELL. CALL LIGHT IN REACH.
[2019-03-08 11:46] VITALS: BP 108/59
--- NOTE | 2019-03-08 12:41 | NUR ---
PT AMB TO REST ROOM AND VOIDED. NO C/O PAIN AT THIS TIME.
[2019-03-08] MEDS: HYDROCODONE/APAP 5MG-325MG TAB PO PRN ×2 (13:16→17:13)
[2019-03-08 15:52] VITALS: BP 101/58
--- NOTE | 2019-03-08 17:30 | NUR ---
pt had shower, tolerated well.
--- NOTE | 2019-03-08 18:00 | NUR ---
pt had dinner tolerated well.
--- NOTE | 2019-03-08 18:32 | NUR ---
PT DISCHARGED HOME AND WAS ASKED TO FOLLOW UP WITH DR. VERDUZCO IN HER OFFICE.PT WAS GIVEN PRESCRIPTION , PT AND FAMILY MEMBER WERE EDUCATED ON MEDICATION BOTH VERBALIZED UNDERSTANDING, IV SITE REMOVED, NO SWELLING NO REDNESS TO SITE.
== END 2019-03-08 18:22 | disposition home or self-care (01) ==
LOC: OR 05:31 → PACU V 09:34 → MED/SURG 11:53
PROVIDERS: ADMIT Specialist; ATTEND Specialist
DX: N85.2 Hypertrophy of uterus (principal); Z01.810 Encounter for preprocedural cardiovascular examination; Z01.812 Encounter for preprocedural laboratory examination; Z01.811 Encounter for preprocedural respiratory examination; J45.909 Unspecified asthma, uncomplicated; F41.9 Anxiety disorder, unspecified
CPT/HCPCS: 36415 ×2; 49000; 71046; 80048; 80076; 81003; 84702; 85025 ×2; 86850; 86900; 87390; 93005; C9290; G0378 ×2; G0433; G0435; J0694; J1100; J1885; J2001; J2250; J2270; J2405; J2704; J3010; J3490; J7121 ×2